=== PATIENT | female | born 1990 | race Caucasian/White ===

== ENCOUNTER 2016-08-24 08:06 | Emergency (ER) | payer MEDICAID ==
[~2016-08-24] VITALS: Ht 180.3 cm; Wt 63.4 kg
[~2016-08-24 08:06] MED LIST: DICL50TA3 PO
[2016-08-24 08:24] VITALS: BP 110/81; PULSE 117; RESP 16; TEMP 99.2
--- NOTE | 2016-08-24 08:58 | PD ---
HPI Chief Complaint: GI Complaint Time Seen by Provider: 08:42 Travel History International Travel<30 days: No Contact w/Intl Traveler<30days: No Traveled to known affect area: No History of Present Illness HPI The patient was seen and examined in the presence of the nurse. She complains of epigastric pain. Duration 3 days. Severity is moderate. She's had some nausea and vomiting and diarrhea as well as several other flu-type syndrome complaints such as runny nose congestion muscle aches. She reports that she had a bit of blood in in an episode of vomiting. No vy hemoptysis. No alleviating factors. PFSH Past Medical History Asthma: Yes Diminished Hearing: No Respiratory: Yes (asthma) Immunizations Current: Yes Tetanus Vaccination: < 5 Years Influenza Vaccination: No ?: Not LMP: 07/24/16 : 1 Para: 1 Past Surgical History Other Surgery: Yes (RIGHT ARM SURGERY A CHILD) Social History Alcohol Use: No Tobacco Use: No Substance Use: No Allergies-Medications (Allergen,Severity, Reaction): Coded Allergies: PEANUTS (Verified Allergy, Severe, Anaphylaxis, 08/24/16) Cultivated Oat Pollen (Verified Allergy, Intermediate, EYES WATERING, SNEEZING, 08/24/16) Reported Meds & Prescriptions Reported Meds & Active Scripts Active No Active Prescriptions or Reported Medications Review of Systems General / Constitutional: No: Fever Eyes: No: Visual changes HENT: Positive: Rhinorrhea, Congestion Cardiovascular: No: Chest Pain or Discomfort Respiratory: Positive: Cough Gastrointestinal: Positive: Nausea, Vomiting, Diarrhea, Abdominal Pain Genitourinary: No: Dysuria Musculoskeletal: Positive: Myalgias Skin: No Rash Neurologic: No: Weakness Psychiatric: No: Depression Endocrine: No: Polydipsia Hematologic/Lymphatic: No: Easy Bruising Physical Exam Narrative GENERAL: Well-nourished, well-developed patient with epigastric pain . SKIN: Warm and dry. HEAD: Atraumatic. Normocephalic. EYES: Pupils equal and round. No scleral icterus. No injection or drainage. ENT: No nasal bleeding or discharge. Mucous membranes pink and moist. NECK: Trachea midline. No JVD. CARDIOVASCULAR: Regular rate and rhythm. No murmur appreciated. RESPIRATORY: No accessory muscle use. Clear to auscultation. Breath sounds equal bilaterally. GASTROINTESTINAL: Abdomen soft, epigastrium is tender but no rebound guarding, nondistended. Hepatic and splenic margins not palpable. MUSCULOSKELETAL: No obvious deformities. No clubbing. No cyanosis. No edema. NEUROLOGICAL: Awake and alert. No obvious cranial nerve deficits. Motor grossly within normal limits. Normal speech. PSYCHIATRIC: Appropriate mood and affect; insight and judgment normal. Data Data Last Documented VS Vital Signs Date Time Temp Pulse Resp B/P Pulse Ox O2 Delivery O2 Flow Rate FiO2 08/24/16 08:50 18 08/24/16 08:24 99.2 117 110/81 Orders Complete Blood Count With Diff (08/24/16 08:51) Comprehensive Metabolic Panel (08/24/16 08:51) Lipase (08/24/16 08:51) Iv Access Insert/Monitor (08/24/16 08:51) NPO (08/24/16 08:51) Sodium Chloride 0.9% Flush (Ns Flush) (08/24/16 09:00) Bhcg Screen Qualitative (08/24/16 09:00) Labs Laboratory Tests Test 08/24/16 09:00 White Blood Count 3.6 TH/MM3 Red Blood Count 4.78 MIL/MM3 Hemoglobin 13.8 GM/DL Hematocrit 41.4 % Mean Corpuscular Volume 86.5 FL Mean Corpuscular Hemoglobin 28.8 PG Mean Corpuscular Hemoglobin 33.3 % Concent Red Cell Distribution Width 13.1 % Platelet Count 191 TH/MM3 Mean Platelet Volume 10.3 FL Neutrophils (%) (Auto) % Lymphocytes (%) (Auto) % Monocytes (%) (Auto) % Eosinophils (%) (Auto) % Basophils (%) (Auto) % Neutrophils # (Auto) TH/MM3 Lymphocytes # (Auto) TH/MM3 Monocytes # (Auto) TH/MM3 Eosinophils # (Auto) TH/MM3 Basophils # (Auto) TH/MM3 CBC Comment AUTO DIFF Sodium Level 140 MEQ/L Potassium Level 3.3 MEQ/L Chloride Level 105 MEQ/L Carbon Dioxide Level 26.6 MEQ/L Anion Gap 8 MEQ/L Blood Urea Nitrogen 14 MG/DL Creatinine 0.94 MG/DL Estimat Glomerular Filtration 73 ML/MIN Rate Random Glucose 87 MG/DL Calcium Level 8.9 MG/DL Total Bilirubin 0.3 MG/DL Aspartate Amino Transf 19 U/L (AST/SGOT) Alanine Aminotransferase 20 U/L (ALT/SGPT) Alkaline Phosphatase 48 U/L Total Protein 7.3 GM/DL Albumin 3.6 GM/DL Lipase 145 U/L Beta HCG, Qualitative LESS THAN 1 MIU/ML MDM Medical Decision Making Medical Screen Exam Complete: Yes Emergency Medical Condition: Yes Medical Record Reviewed: Yes Differential Diagnosis Differential diagnosis includes pancreatitis, biliary colic, hepatitis, GERD, peptic ulcer disease. Narrative Course I have reviewed the patient's electronic medical record. IV placed CBC shows normal hemoglobin Metabolic profile is normal LFTs are normal Lipase is normal Beta hCG is negative Patient is stable for outpatient follow-up. She has a viral flu syndrome which should resolve. I suggested some [id number] acid jared medication and recommending primary care follow-up I don't feel CT imaging is indicated Diagnosis Primary Impression: Epigastric abdominal pain of unknown etiology Additional Impression: Flu syndrome Additional Instructions: The patient was advised to follow up with their physician and return if they worsen. Med/Other Pt SpecificInfo: Other Scripts No Active Prescriptions or Reported Meds Disposition: 01 DISCHARGE HOME Condition: Stable Luis Laws MD Aug 24, 2016 08:57
[2016-08-24] MEDS ORDERED: SODIUM CHLORIDE 0.9% FLUSH 5 ML FLUSH IVF PRN (09:00)
[2016-08-24 09:11] LABS: CHLORIDE 105 MEQ/L (98-107); POTASSIUM 3.3 MEQ/L (3.5-5.1); SODIUM (NA) 140 MEQ/L (136-145)
[2016-08-24 09:15] LABS: ANION GAP 8 MEQ/L (5-15); BICARBONATE 26.6 MEQ/L (21.0-32.0); BLOOD UREA NITROGEN 14 MG/DL (7-18)
[2016-08-24 09:16] LABS: HEMATOCRIT 41.4 % (35.0-46.0); HEMO FLAGS AUTO DIFF; MEAN CELL VOLUME 86.5 FL (80.0-100.0); MEAN CORPUSCULAR HEMOGLOBIN 28.8 PG (27.0-34.0); MEAN CORPUSCULAR HGB CONC 33.3 % (32.0-36.0); PLATELET COUNT 191 TH/MM3 (150-450); RED BLOOD COUNT 4.78 MIL/MM3 (4.00-5.30); RED CELL DISTRIBUTION WIDTH 13.1 % (11.6-17.2); WHITE BLOOD COUNT 3.6 TH/MM3 (4.0-11.0)
[2016-08-24 09:18] LABS: ALT (GPT) 20 U/L (10-53); AST (GOT) 19 U/L (15-37); GLOMERULAR FILTRATION RATE 73 ML/MIN (>89)
[2016-08-24 09:19] LABS: TOTAL BILIRUBIN ADULT 0.3 MG/DL (0.2-1.0)
[2016-08-24 09:20] LABS: ALKALINE PHOSPHATASE 48 U/L (45-117)
[2016-08-24 09:58] LABS: BHCG SCREEN QUALITATIVE LESS THAN 1 MIU/ML (0-5)
[2016-08-24 10:42] LABS: BANDS 8 % (0-6); NEUTROPHIL # MANUAL DIFF 2.4 TH/MM3 (1.8-7.7); PLATELET ESTIMATE SMEAR NORMAL (NORMAL); PLATELET MORPHOLOGY NORMAL (NORMAL); POLYS (SEG NEUTROPHILS) 60 % (16-70); SCAN/DIFF FINAL DIFF MANUAL; WBC DIFF SAMPLE 100
[2016-08-24 10:45] VITALS: BP 107/70; PULSE 76; RESP 14; O2SAT 96
== END 2016-08-24 10:50 | disposition home or self-care (01) ==
LOC: PHED 08:06
DX: R10.13 Epigastric pain (principal); J11.1 Influenza due to unidentified influenza virus with other respiratory manifestations; R11.2 Nausea with vomiting, unspecified; R19.7 Diarrhea, unspecified; R09.81 Nasal congestion; M79.1 Myalgia; K92.0 Hematemesis; Z87.09 Personal history of other diseases of the respiratory system
CPT/HCPCS: 80053; 83690; 84703; 85007; 85027; 99284

== ENCOUNTER 2016-11-14 18:35 | Emergency (ER) | payer MEDICAID ==
[~2016-11-14] VITALS: Ht 180.3 cm; Wt 60.0 kg
[2016-11-14 18:37] VITALS: BP 129/79; PULSE 79; RESP 20; TEMP 98.7; O2SAT 100
[2016-11-14] MEDS ORDERED: ALBU1.25 NEB (18:50)
[2016-11-14] MEDS ORDERED: VENTAER INH (18:50)
--- NOTE | 2016-11-14 18:59 | PD ---
HPI Chief Complaint: Numbness/Tingling Time Seen by Provider: 18:59 Travel History International Travel<30 days: No Contact w/Intl Traveler<30days: No Traveled to known affect area: No History of Present Illness HPI 26-year-old female presents to the ED for evaluation of numbness and tingling of the right side of the body accompanied by chest pressure. Onset at noon today while in the store with her mother. She first experienced numbness and tingling of the entire right leg followed shortly by the right arm and right side of the face. She states that the chest pressure began shortly after. She denies palpitations, diaphoresis. She endorses mild nausea. She denies headache, dizziness, vision changes, loss of strength or range of motion of the extremities. Mom is at bedside and denies facial droop or slurred speech. Patient states that she's been eating and drinking normally throughout the day. She endorses "normal" urination and bowel movements. She takes no daily medications. She denies chronic health problems. She has never had an episode like this before. No treatment attempted at home. PFSH Past Medical History Asthma: Yes Diminished Hearing: No Respiratory: Yes (asthma) Immunizations Current: Yes Tetanus Vaccination: < 5 Years ?: Not LMP: 11/06/16 : 1 Para: 1 Past Surgical History Other Surgery: Yes (RIGHT ARM SURGERY A CHILD) Social History Alcohol Use: No Tobacco Use: No Substance Use: No Allergies-Medications (Allergen,Severity, Reaction): Coded Allergies: PEANUTS (Verified Allergy, Severe, Anaphylaxis, 11/14/16) Cultivated Oat Pollen (Verified Allergy, Intermediate, EYES WATERING, SNEEZING, 11/14/16) Reported Meds & Prescriptions Reported Meds & Active Scripts Active Reported Ventolin Hfa 18 GM Inh (Albuterol Sulfate) 90 Mcg/Act Aer 2 Puff INH Q4-6H PRN Albuterol Neb (Albuterol Sulfate) Unknown Strength Neb Unknown Dose NEB Q6HR NEB PRN Review of Systems Except as stated in HPI: all other systems reviewed are Neg Physical Exam Narrative GENERAL: Well-nourished, well-developed white female in no acute distress. SKIN: Focused skin assessment warm/dry. HEAD: Normocephalic. EYES: No scleral icterus. No injection or drainage. PERRLA. EOMI. NECK: Supple, trachea midline. No JVD or lymphadenopathy. CARDIOVASCULAR: Regular rate and rhythm without murmurs, gallops, or rubs. 2+ DP and radial pulses bilaterally. RESPIRATORY: Breath sounds are and equal bilaterally. No accessory muscle use. GASTROINTESTINAL: Abdomen soft, non-tender, nondistended. Active bowel sounds. MUSCULOSKELETAL: No cyanosis, or edema. Patient is noted to walk with normal gait. Sharp/dull sensation diminished from the right foot to the right knee. NEUROLOGICAL: Awake and alert. Cranial nerves II through XII intact. Motor and sensory grossly within normal limits. Five out of 5 muscle strength in all muscle groups. Normal speech. No pronator drift. BACK: Nontender without obvious deformity. No CVA tenderness. Data Data Last Documented VS Vital Signs Date Time Temp Pulse Resp B/P Pulse Ox O2 Delivery O2 Flow Rate FiO2 11/14/16 18:37 98.7 79 20 129/79 100 Room Air Orders Electrocardiogram (11/14/16 19:24) Ckmb (Isoenzyme) Profile (11/14/16 19:24) Complete Blood Count With Diff (11/14/16 19:24) Comprehensive Metabolic Panel (11/14/16 19:24) Magnesium (Mg) (11/14/16 19:24) Prothrombin Time / Inr (Pt) (11/14/16 19:24) Act Partial Throm Time (Ptt) (11/14/16 19:24) Troponin I (11/14/16 19:24) Chest, Single Ap (11/14/16 19:24) Ecg Monitoring (11/14/16 19:24) Bilateral Bp Monitoring (11/14/16 19:24) Iv Access Insert/Monitor (11/14/16 19:24) Oximetry (11/14/16 19:24) Sodium Chloride 0.9% Flush (Ns Flush) (11/14/16 19:30) Ed Urine Pregnancytest Poc (11/14/16 19:24) Sodium Chlor 0.9% 1000 Ml Inj (Ns 1000 M (11/14/16 19:45) Urinalysis - C+S If Indicated (11/14/16 20:53) Mri Brain W/O Contrast (11/14/16 ) Potassium Chloride (Kcl) (11/14/16 22:15) Labs Laboratory Tests Test 11/14/16 11/14/16 19:40 20:55 White Blood Count 8.0 TH/MM3 Red Blood Count 4.53 MIL/MM3 Hemoglobin 13.4 GM/DL Hematocrit 38.8 % Mean Corpuscular Volume 85.7 FL Mean Corpuscular Hemoglobin 29.6 PG Mean Corpuscular Hemoglobin 34.6 % Concent Red Cell Distribution Width 13.5 % Platelet Count 224 TH/MM3 Mean Platelet Volume 10.5 FL Neutrophils (%) (Auto) 64.9 % Lymphocytes (%) (Auto) 22.4 % Monocytes (%) (Auto) 10.9 % Eosinophils (%) (Auto) 1.3 % Basophils (%) (Auto) 0.5 % Neutrophils # (Auto) 5.2 TH/MM3 Lymphocytes # (Auto) 1.8 TH/MM3 Monocytes # (Auto) 0.9 TH/MM3 Eosinophils # (Auto) 0.1 TH/MM3 Basophils # (Auto) 0.0 TH/MM3 CBC Comment DIFF FINAL Differential Comment Prothrombin Time 10.9 SEC Prothromb Time International 1.0 RATIO Ratio Activated Partial 29.7 SEC Thromboplast Time Sodium Level 140 MEQ/L Potassium Level 3.4 MEQ/L Chloride Level 104 MEQ/L Carbon Dioxide Level 28.7 MEQ/L Anion Gap 7 MEQ/L Blood Urea Nitrogen 10 MG/DL Creatinine 0.89 MG/DL Estimat Glomerular Filtration 78 ML/MIN Rate Random Glucose 85 MG/DL Calcium Level 8.6 MG/DL Magnesium Level 2.4 MG/DL Total Bilirubin 0.3 MG/DL Aspartate Amino Transf 14 U/L (AST/SGOT) Alanine Aminotransferase 15 U/L (ALT/SGPT) Alkaline Phosphatase 65 U/L Total Creatine Kinase 90 U/L Troponin I LESS THAN 0.02 NG/ML Total Protein 7.1 GM/DL Albumin 3.7 GM/DL Urine Color YELLOW Urine Turbidity CLEAR Urine pH 7.0 Urine Specific [place] 1.014 Urine Protein NEG mg/dL Urine Glucose (UA) NEG mg/dL Urine Ketones NEG mg/dL Urine Occult Blood NEG Urine Nitrite NEG Urine Bilirubin NEG Urine Urobilinogen 2.0 MG/DL Urine Leukocyte Esterase NEG Urine WBC 1 /hpf Urine Squamous Epithelial <1 /hpf Cells Microscopic Urinalysis Comment CULT NOT INDICATED MDM Medical Decision Making Medical Screen Exam Complete: Yes Emergency Medical Condition: Yes Interpretation(s) EKG rate 70, sinus rhythm. NC interval 163, QRS 91, QTC 417. Normal axis. No ST depressions or elevations. Reviewed by Dr. Ho Differential Diagnosis ICH versus ACS versus dehydration versus electrolyte abnormality versus versus anxiety versus Guillain [place] versus other Narrative Course 26-year-old female presents to the ED for evaluation of numbness and tingling of the right side of the body accompanied by chest pressure. Onset at noon today while in the store with her mother. She first experienced numbness and tingling of the entire right leg followed shortly by the right arm and right side of the face. She states that the chest pressure began shortly after. She denies palpitations, diaphoresis. She endorses mild nausea. She denies headache, dizziness, vision changes, loss of strength or range of motion of the extremities. Mom is at bedside and denies facial droop or slurred speech. Patient states that she's been eating and drinking normally throughout the day. She endorses "normal" urination and bowel movements. She takes no daily medications. She denies chronic health problems. She has never had an episode like this before. Vitals reviewed. Physical exam , nontoxic-appearing white female in no acute distress. No focal neural deficits. Chest CTAB. Abdomen soft, nontender. No CVA tenderness. Patient retains full, active, painless ROM of the bilateral upper and lower extremities. Strength 5/5 bilaterally. Poor sharp versus dull discrimination from the right foot to the right knee. Patient was placed on continuous monitoring. IV was established. She was administered a liter of normal saline. CBC: Unremarkable Coags: INR 1.0. CMP: UA: Urine test: Negative Cardiac enzymes: Chest x-ray: Normal per radiology read. EKG: As above Head CT: Pending On recheck the patient is now complaining that her teeth and left hand feel numb. I discussed the case with Dr. Sheppard who suggests observational admission. CMP, UA, CT pending at this time. The patient will be signed out to Nicola Melendez PA-C. Please see his note for disposition. Patricia Lyon November 14, 2016 18:59
[2016-11-14] MEDS ORDERED: SODIUM CHLORIDE 0.9% FLUSH 10 ML FLUSH IVF PRN (19:30)
[2016-11-14] MEDS ORDERED: SODIUM CHLOR 0.9% 1000 ML INJ 1,000 ML IV ONE (19:45)
[2016-11-14 20:11] LABS: AUTOMATED NEUTROPHIL # 5.2 TH/MM3 (1.8-7.7); BASOPHIL % 0.5 % (0.0-2.0); EOSINOPHIL # 0.1 TH/MM3 (0-0.4); EOSINOPHIL % 1.3 % (0.0-4.0); HEMATOCRIT 38.8 % (35.0-46.0); HEMO FLAGS DIFF FINAL; LYMPH % 22.4 % (9.0-44.0); LYMPHOCYTE # 1.8 TH/MM3 (1.0-4.8); MEAN CELL VOLUME 85.7 FL (80.0-100.0); MEAN CORPUSCULAR HEMOGLOBIN 29.6 PG (27.0-34.0); MEAN CORPUSCULAR HGB CONC 34.6 % (32.0-36.0); MONO % 10.9 % (0.0-8.0); NEUT % 64.9 % (16.0-70.0); PLATELET COUNT 224 TH/MM3 (150-450); RED BLOOD COUNT 4.53 MIL/MM3 (4.00-5.30); RED CELL DISTRIBUTION WIDTH 13.5 % (11.6-17.2)
[2016-11-14 20:28] LABS: ANION GAP 7 MEQ/L (5-15); AST (GOT) 14 U/L (15-37); BICARBONATE 28.7 MEQ/L (21.0-32.0); BLOOD UREA NITROGEN 10 MG/DL (7-18); CHLORIDE 104 MEQ/L (98-107); GLOMERULAR FILTRATION RATE 78 ML/MIN (>89); MAGNESIUM 2.4 MG/DL (1.5-2.5); POTASSIUM 3.4 MEQ/L (3.5-5.1); SODIUM (NA) 140 MEQ/L (136-145)
--- NOTE | 2016-11-14 20:28 | RADRPT ---
EXAM DATE/TIME: 11/14/2016 19:56 [facility] COMPARISON: No previous studies available for comparison. INDICATIONS : Chest pain MEDICAL HISTORY : None. SURGICAL HISTORY : None. ENCOUNTER: Initial ACUITY: 1 day PAIN SCORE: 5/10 LOCATION: Bilateral chest FINDINGS: A single view of the chest demonstrates the lungs to be symmetrically aerated without evidence of mas s, infiltrate or effusion. The cardiomediastinal contours are unremarkable. Osseous structures are intact. CONCLUSION: Normal examination. Ricardo Ennis MD on November 14, 2016 at 20:26 Board Certified Radiologist. This report was verified electronically.
[2016-11-14 20:31] LABS: APTT (PATIENT) 29.7 SEC (24.3-30.1); PROTHROMBIN TIME - PATIENT 10.9 SEC (9.8-11.6)
[2016-11-14 20:34] LABS: ALKALINE PHOSPHATASE 65 U/L (45-117); ALT (GPT) 15 U/L (10-53); TOTAL BILIRUBIN ADULT 0.3 MG/DL (0.2-1.0)
[2016-11-14 20:57] LABS: CREATINE KINASE 90 U/L (26-192)
[2016-11-14 21:12] LABS: BLOOD, URINE NEG (NEG); GLUCOSE,URINE NEG (NEG); KETONE, URINE NEG (NEG); NITRITE,URINE NEG (NEG); SQUAMOUS EPITHELIAL CELL URINE <1 /hpf (0-5); URINE COLOR YELLOW (YELLW/STRAW)
[2016-11-14 21:17] LABS: COMMENT (UR) CULT NOT INDICATED; CULTURE IF INDICATED CULT NOT INDICATED
--- NOTE | 2016-11-14 21:30 | PD ---
Physical Exam Time Seen by Provider: 21:15 Data Data Last Documented VS Vital Signs Date Time Temp Pulse Resp B/P Pulse Ox O2 Delivery O2 Flow Rate FiO2 11/14/16 18:37 98.7 79 20 129/79 100 Room Air Orders Electrocardiogram (11/14/16 19:24) Ckmb (Isoenzyme) Profile (11/14/16 19:24) Complete Blood Count With Diff (11/14/16 19:24) Comprehensive Metabolic Panel (11/14/16 19:24) Magnesium (Mg) (11/14/16 19:24) Prothrombin Time / Inr (Pt) (11/14/16 19:24) Act Partial Throm Time (Ptt) (11/14/16 19:24) Troponin I (11/14/16 19:24) Chest, Single Ap (11/14/16 19:24) Ecg Monitoring (11/14/16 19:24) Bilateral Bp Monitoring (11/14/16 19:24) Iv Access Insert/Monitor (11/14/16 19:24) Oximetry (11/14/16 19:24) Sodium Chloride 0.9% Flush (Ns Flush) (11/14/16 19:30) Ed Urine Pregnancytest Poc (11/14/16 19:24) Sodium Chlor 0.9% 1000 Ml Inj (Ns 1000 M (11/14/16 19:45) Urinalysis - C+S If Indicated (11/14/16 20:53) Mri Brain W/O Contrast (11/14/16 ) Potassium Chloride (Kcl) (11/14/16 22:15) Labs Laboratory Tests Test 11/14/16 11/14/16 19:40 20:55 White Blood Count 8.0 TH/MM3 Red Blood Count 4.53 MIL/MM3 Hemoglobin 13.4 GM/DL Hematocrit 38.8 % Mean Corpuscular Volume 85.7 FL Mean Corpuscular Hemoglobin 29.6 PG Mean Corpuscular Hemoglobin 34.6 % Concent Red Cell Distribution Width 13.5 % Platelet Count 224 TH/MM3 Mean Platelet Volume 10.5 FL Neutrophils (%) (Auto) 64.9 % Lymphocytes (%) (Auto) 22.4 % Monocytes (%) (Auto) 10.9 % Eosinophils (%) (Auto) 1.3 % Basophils (%) (Auto) 0.5 % Neutrophils # (Auto) 5.2 TH/MM3 Lymphocytes # (Auto) 1.8 TH/MM3 Monocytes # (Auto) 0.9 TH/MM3 Eosinophils # (Auto) 0.1 TH/MM3 Basophils # (Auto) 0.0 TH/MM3 CBC Comment DIFF FINAL Differential Comment Prothrombin Time 10.9 SEC Prothromb Time International 1.0 RATIO Ratio Activated Partial 29.7 SEC Thromboplast Time Sodium Level 140 MEQ/L Potassium Level 3.4 MEQ/L Chloride Level 104 MEQ/L Carbon Dioxide Level 28.7 MEQ/L Anion Gap 7 MEQ/L Blood Urea Nitrogen 10 MG/DL Creatinine 0.89 MG/DL Estimat Glomerular Filtration 78 ML/MIN Rate Random Glucose 85 MG/DL Calcium Level 8.6 MG/DL Magnesium Level 2.4 MG/DL Total Bilirubin 0.3 MG/DL Aspartate Amino Transf 14 U/L (AST/SGOT) Alanine Aminotransferase 15 U/L (ALT/SGPT) Alkaline Phosphatase 65 U/L Total Creatine Kinase 90 U/L Troponin I LESS THAN 0.02 NG/ML Total Protein 7.1 GM/DL Albumin 3.7 GM/DL Urine Color YELLOW Urine Turbidity CLEAR Urine pH 7.0 Urine Specific [place] 1.014 Urine Protein NEG mg/dL Urine Glucose (UA) NEG mg/dL Urine Ketones NEG mg/dL Urine Occult Blood NEG Urine Nitrite NEG Urine Bilirubin NEG Urine Urobilinogen 2.0 MG/DL Urine Leukocyte Esterase NEG Urine WBC 1 /hpf Urine Squamous Epithelial <1 /hpf Cells Microscopic Urinalysis Comment CULT NOT INDICATED MDM Medical Record Reviewed: Yes Supervised Visit with MYA: No Narrative Course This patient was signed out pending some lab work and imaging studies. Please see previous providers note. Briefly this is a 26-year-old female who presents with several hours of right-sided body paresthesias. She endorses numbness in the right side of her face, right arm, right leg. Over the past several days she has been dispensing some paresthesias in the left hand as well. She denies any weakness in the arms or legs. She does endorse a substernal pressure for several hours as well. On examination she has 55 muscle strength in the upper and lower extremities, cranial nerves II through XII are grossly intact. She endorses some paresthesias with light and sharp touch on the right side of her face, right arm and right leg. She has 1+ Achilles and patellar reflexes bilaterally. Negative Babinski. This is an otherwise healthy 26-year-old female. Her lab work reveals slight hypokalemia with a 3.4 potassium level which would not explain her symptoms. Plan will be for MRI without contrast to assess for any mass lesions, evidence of multiple sclerosis. If negative likely discharge and outpatient follow-up with neurology. The MRI of the brain was negative. The patient will be given information in regards to applying for patient assistance for outpatient follow-up. She is agreeable to this plan. Diagnosis Primary Impression: Paresthesias Referrals: Neurologist Primary Care Physician Additional Instruction: As discussed, follow-up with a primary care physician, neurologist. Apply for patient assistance. Return for any acutely new or worsening symptoms. Med/Other Pt SpecificInfo: No Change to Meds Disposition: 01 DISCHARGE HOME Condition: Stable Nicola Melendez November 14, 2016 21:30
--- NOTE | 2016-11-14 21:34 | EKG ---
Date Performed: 11/14/2016 Time Performed: 19:34:42 PTAGE: 26 years EKG: Sinus rhythm WITH SINUS ARRHYTHMIA NORMAL ECG NO PREVIOUS TRACING DOCTOR: Toyin Ashby Interpretating Date/Time 11/14/2016 21:32:50
--- NOTE | 2016-11-14 22:13 | RADRPT ---
EXAM DATE/TIME: 11/14/2016 21:39 [facility] COMPARISON: No previous studies available for comparison. INDICATIONS : Right upper and lower extremity numbness. MEDICAL HISTORY : None. SURGICAL HISTORY : None. ENCOUNTER: Initial ACUITY: 1 day PAIN SCORE: 0/10 LOCATION: cranial TECHNIQUE: Multiplanar, multisequence MRI of the brain was performed without contrast. FINDINGS: CEREBRUM: The ventricles are normal for age. No evidence of midline shift, mass lesion, hemorrhage or acute in farction. No extraaxial fluid collections are seen. The pituitary gland and suprasellar cistern are normal in configuration. WHITE MATTER: No significant signal abnormalities are seen in the white matter. POSTERIOR FOSSA: The cerebellum and brainstem are intact. The 4th ventricle is midline. The cerebellopontine angle is unremarkable. The cerebellar tonsils are normal in position. DIFFUSION IMAGING: No focal areas of restricted diffusion are seen. No evidence of acute infarction. EXTRACRANIAL: The visualized portions of the orbits and paranasal sinuses are unremarkable. CONCLUSION: Normal examination for a patient of this age. Ricardo Ennis MD on November 14, 2016 at 22:07 Board Certified Radiologist. This report was verified electronically.
[2016-11-14] MEDS ORDERED: POTASSIUM CHLORIDE 20 MEQ CONTROLLED RELEASE TAB PO ONE (22:15)
--- NOTE | 2016-11-14 22:24 | PD ---
Data Data Last Documented VS Vital Signs Date Time Temp Pulse Resp B/P Pulse Ox O2 Delivery O2 Flow Rate FiO2 11/14/16 18:37 98.7 79 20 129/79 100 Room Air Orders Electrocardiogram (11/14/16 19:24) Ckmb (Isoenzyme) Profile (11/14/16 19:24) Complete Blood Count With Diff (11/14/16 19:24) Comprehensive Metabolic Panel (11/14/16 19:24) Magnesium (Mg) (11/14/16 19:24) Prothrombin Time / Inr (Pt) (11/14/16 19:24) Act Partial Throm Time (Ptt) (11/14/16 19:24) Troponin I (11/14/16 19:24) Chest, Single Ap (11/14/16 19:24) Ecg Monitoring (11/14/16 19:24) Bilateral Bp Monitoring (11/14/16 19:24) Iv Access Insert/Monitor (11/14/16 19:24) Oximetry (11/14/16 19:24) Sodium Chloride 0.9% Flush (Ns Flush) (11/14/16 19:30) Ed Urine Pregnancytest Poc (11/14/16 19:24) Sodium Chlor 0.9% 1000 Ml Inj (Ns 1000 M (11/14/16 19:45) Urinalysis - C+S If Indicated (11/14/16 20:53) Mri Brain W/O Contrast (11/14/16 ) Potassium Chloride (Kcl) (11/14/16 22:15) Labs Laboratory Tests Test 11/14/16 11/14/16 19:40 20:55 White Blood Count 8.0 TH/MM3 Red Blood Count 4.53 MIL/MM3 Hemoglobin 13.4 GM/DL Hematocrit 38.8 % Mean Corpuscular Volume 85.7 FL Mean Corpuscular Hemoglobin 29.6 PG Mean Corpuscular Hemoglobin 34.6 % Concent Red Cell Distribution Width 13.5 % Platelet Count 224 TH/MM3 Mean Platelet Volume 10.5 FL Neutrophils (%) (Auto) 64.9 % Lymphocytes (%) (Auto) 22.4 % Monocytes (%) (Auto) 10.9 % Eosinophils (%) (Auto) 1.3 % Basophils (%) (Auto) 0.5 % Neutrophils # (Auto) 5.2 TH/MM3 Lymphocytes # (Auto) 1.8 TH/MM3 Monocytes # (Auto) 0.9 TH/MM3 Eosinophils # (Auto) 0.1 TH/MM3 Basophils # (Auto) 0.0 TH/MM3 CBC Comment DIFF FINAL Differential Comment Prothrombin Time 10.9 SEC Prothromb Time International 1.0 RATIO Ratio Activated Partial 29.7 SEC Thromboplast Time Sodium Level 140 MEQ/L Potassium Level 3.4 MEQ/L Chloride Level 104 MEQ/L Carbon Dioxide Level 28.7 MEQ/L Anion Gap 7 MEQ/L Blood Urea Nitrogen 10 MG/DL Creatinine 0.89 MG/DL Estimat Glomerular Filtration 78 ML/MIN Rate Random Glucose 85 MG/DL Calcium Level 8.6 MG/DL Magnesium Level 2.4 MG/DL Total Bilirubin 0.3 MG/DL Aspartate Amino Transf 14 U/L (AST/SGOT) Alanine Aminotransferase 15 U/L (ALT/SGPT) Alkaline Phosphatase 65 U/L Total Creatine Kinase 90 U/L Troponin I LESS THAN 0.02 NG/ML Total Protein 7.1 GM/DL Albumin 3.7 GM/DL Urine Color YELLOW Urine Turbidity CLEAR Urine pH 7.0 Urine Specific [place] 1.014 Urine Protein NEG mg/dL Urine Glucose (UA) NEG mg/dL Urine Ketones NEG mg/dL Urine Occult Blood NEG Urine Nitrite NEG Urine Bilirubin NEG Urine Urobilinogen 2.0 MG/DL Urine Leukocyte Esterase NEG Urine WBC 1 /hpf Urine Squamous Epithelial <1 /hpf Cells Microscopic Urinalysis Comment CULT NOT INDICATED MDM Supervised Visit with MYA: Yes Narrative Course The history, exam, and medical decision-making in the associated mid-level provider note were completed with my assistance. I reviewed and agree with the findings presented. I attest that I had a [id number] encounter with the patient on the same day, and personally performed and documented my assessment and findings in the medical record. *My assessment and Findings: 26 old woman presents to the emergency department complaining of numbness tingling of the right side of her body including right arm right leg and right face. Since being here is also quite is some tingling in her teeth, and some tingling in her left side. She also had some chest pressure. No motor symptoms. MRI of the brain was performed without evidence of mass, hemorrhage, infarction, or white matter disease. Electrolytes are overall unremarkable. Numbness in tingling is likely nonorganic. With further evaluation if she develops any new or worsening symptoms. Stable for outpatient follow-up. Diagnosis Primary Impression: Paresthesias Referrals: Neurologist Primary Care Physician Disposition: 01 DISCHARGE HOME Condition: Stable Titi Alba MD November 14, 2016 22:24
== END 2016-11-14 22:29 | disposition home or self-care (01) ==
LOC: NEPD 18:35
DX: R20.2 Paresthesia of skin (principal); R07.89 Other chest pain; I49.8 Other specified cardiac arrhythmias
CPT/HCPCS: 70551; 71010; 80053; 81001; 82550; 83735; 84484; 84703; 85025; 85610; 85730; 93005; 96360; 99285; J7030

== ENCOUNTER 2016-11-16 20:51 | Observation (INO) | payer MEDICAID ==
[~2016-11-16] VITALS: Ht 180.3 cm; Wt 62.9 kg
[~2016-11-16 20:51] MED LIST changes: +ALBU1.25 NEB; -DICL50TA3 PO; +VENTAER INH
[2016-11-16 20:58] VITALS: BP 121/83; PULSE 83; RESP 18; TEMP 98.2; O2SAT 99
[2016-11-16 21:25] VITALS: BP 105/79; PULSE 72; RESP 18; O2SAT 99
--- NOTE | 2016-11-16 21:49 | PD ---
HPI Chief Complaint: Numbness/Tingling Time Seen by Provider: 21:35 Travel History International Travel<30 days: No Contact w/Intl Traveler<30days: No Traveled to known affect area: No History of Present Illness HPI This 26-year-old female presents because she noted some numbness in her left leg. She went to the [facility] 2 days ago because she developed numbness on the right side of her body. It involves her face or arm and her leg. The trunk is not affected. She had an MRI done of the brain which was read as negative. She says she's felt a little bit unsteady. She feels like her right arm and leg might be slightly weaker than the left. Today she started to notice some numbness in her left leg. She is not having fever or chills. She is not having headache. She does not take any medication. Regnancy test done 2 days ago was negative. PFSH Past Medical History Asthma: Yes Diminished Hearing: No Respiratory: Yes (ASTHMA) Immunizations Current: Yes Tetanus Vaccination: < 5 Years Influenza Vaccination: No ?: Not LMP: 1 WEEK : 1 Para: 1 Past Surgical History Other Surgery: Yes (RIGHT ARM SURGERY A CHILD) Social History Alcohol Use: No Tobacco Use: No Substance Use: No Allergies-Medications (Allergen,Severity, Reaction): Coded Allergies: PEANUTS (Verified Allergy, Severe, Anaphylaxis, 11/16/16) Cultivated Oat Pollen (Verified Allergy, Intermediate, EYES WATERING, SNEEZING, 11/16/16) Reported Meds & Prescriptions Reported Meds & Active Scripts Active Reported Ventolin Hfa 18 GM Inh (Albuterol Sulfate) 90 Mcg/Act Aer 2 Puff INH Q4-6H PRN Albuterol Neb (Albuterol Sulfate) Unknown Strength Neb Unknown Dose NEB Q6HR NEB PRN Review of Systems General / Constitutional: No: Fever, Chills Eyes: No: Diploplia, Blurred Vision HENT: No: Headaches, Vertigo, Lightheadedness Cardiovascular: No: Chest Pain or Discomfort, Palpitations Respiratory: No: Cough, Shortness of Breath Gastrointestinal: No: Vomiting, Diarrhea Genitourinary: No: Urgency, Frequency Musculoskeletal: No: Myalgias, Arthralgias Skin: No Rash Neurologic: Positive: Weakness, Sensory Disturbance Endocrine: No: Heat Intolerance, Cold Intolerance Hematologic/Lymphatic: No: Lymph Node Enlargement Physical Exam Narrative GENERAL: Well-developed female SKIN: Focused skin assessment warm/dry. HEAD: Atraumatic. Normocephalic. EYES: Pupils equal and round. No scleral icterus. No injection or drainage. ENT: No nasal bleeding or discharge. Mucous membranes pink and moist. NECK: Trachea midline. No JVD. CARDIOVASCULAR: Regular rate and rhythm. No murmur appreciated. RESPIRATORY: No accessory muscle use. Clear to auscultation. Breath sounds equal bilaterally. GASTROINTESTINAL: Abdomen soft, non-tender, nondistended. Hepatic and splenic margins not palpable. MUSCULOSKELETAL: No obvious deformities. No clubbing. No cyanosis. No edema. NEUROLOGICAL: Awake and alert. No obvious cranial nerve deficits. The right leg is slightly weaker than the left. Her speech is normal. She does have a sensory deficit of the right arm and face and leg. It involves light touch and proprioception The trunk does not appear to be affected. PSYCHIATRIC: Appropriate mood and affect; insight and judgment normal. Data Data Last Documented VS Vital Signs Date Time Temp Pulse Resp B/P Pulse Ox O2 Delivery O2 Flow Rate FiO2 11/16/16 21:25 72 18 105/79 99 Room Air 11/16/16 20:58 98.2 Orders Complete Blood Count With Diff (11/16/16 22:02) Basic Metabolic Panel (Bmp) (11/16/16 22:02) Westergren Sedimentation Rate (11/16/16 22:02) Labs Laboratory Tests Test 11/16/16 22:10 White Blood Count 7.1 TH/MM3 Red Blood Count 4.44 MIL/MM3 Hemoglobin 13.1 GM/DL Hematocrit 38.5 % Mean Corpuscular Volume 86.6 FL Mean Corpuscular Hemoglobin 29.5 PG Mean Corpuscular Hemoglobin 34.1 % Concent Red Cell Distribution Width 12.6 % Platelet Count 202 TH/MM3 Mean Platelet Volume 9.7 FL Neutrophils (%) (Auto) 60.4 % Lymphocytes (%) (Auto) 28.5 % Monocytes (%) (Auto) 8.9 % Eosinophils (%) (Auto) 1.2 % Basophils (%) (Auto) 1.0 % Neutrophils # (Auto) 4.3 TH/MM3 Lymphocytes # (Auto) 2.0 TH/MM3 Monocytes # (Auto) 0.6 TH/MM3 Eosinophils # (Auto) 0.1 TH/MM3 Basophils # (Auto) 0.1 TH/MM3 CBC Comment DIFF FINAL Differential Comment Erythrocyte Sedimentation Rate 3 mm/hr Sodium Level 141 MEQ/L Potassium Level 3.2 MEQ/L Chloride Level 103 MEQ/L Carbon Dioxide Level 30.8 MEQ/L Anion Gap 7 MEQ/L Blood Urea Nitrogen 14 MG/DL Creatinine 0.89 MG/DL Estimat Glomerular Filtration 78 ML/MIN Rate Random Glucose 111 MG/DL Calcium Level 8.9 MG/DL [facility] Medical Decision Making Medical Screen Exam Complete: Yes Emergency Medical Condition: Yes Medical Record Reviewed: Yes Differential Diagnosis Differential includes MS, conversion reaction, CVA Narrative Course Have discussed the case with Dr. Lee. He advises that MS may be missed with an MRI without contrast. She will be admitted for further evaluation. Patient does feel that her deficits have progressed over the past 2 days Diagnosis Primary Impression: Hemisensory deficit Naveed Hayward MD November 16, 2016 21:49
[2016-11-16 22:20] LABS: AUTOMATED NEUTROPHIL # 4.3 TH/MM3 (1.8-7.7); BASOPHIL # 0.1 TH/MM3 (0-0.2); EOSINOPHIL # 0.1 TH/MM3 (0-0.4); EOSINOPHIL % 1.2 % (0.0-4.0); HEMATOCRIT 38.5 % (35.0-46.0); HEMO FLAGS DIFF FINAL; LYMPH % 28.5 % (9.0-44.0); MEAN CELL VOLUME 86.6 FL (80.0-100.0); MEAN CORPUSCULAR HEMOGLOBIN 29.5 PG (27.0-34.0); MEAN CORPUSCULAR HGB CONC 34.1 % (32.0-36.0); MONO % 8.9 % (0.0-8.0); NEUT % 60.4 % (16.0-70.0); PLATELET COUNT 202 TH/MM3 (150-450); RED BLOOD COUNT 4.44 MIL/MM3 (4.00-5.30); RED CELL DISTRIBUTION WIDTH 12.6 % (11.6-17.2); WHITE BLOOD COUNT 7.1 TH/MM3 (4.0-11.0)
[2016-11-16 22:34] LABS: POTASSIUM 3.2 MEQ/L (3.5-5.1)
[2016-11-16 22:37] LABS: BICARBONATE 30.8 MEQ/L (21.0-32.0)
[2016-11-16 22:47] VITALS: BP 89/49; PULSE 74; RESP 16; O2SAT 95
[2016-11-16] MEDS ORDERED: POTASSIUM CHLORIDE 20 MEQ CONTROLLED RELEASE TAB PO ONE (23:00)
[2016-11-16] MEDS ORDERED: NALOXONE HCL 0.4 MG/ML AMP IV PRN (23:15)
[2016-11-16] MEDS ORDERED: ONDANSETRON HCL 4 MG/2 ML VIAL IVP PRN (23:15)
[2016-11-16] MEDS ORDERED: ACETAMINOPHEN 325 MG TAB PO PRN (23:15)
[2016-11-16] MEDS ORDERED: SODIUM CHLORIDE 0.9% FLUSH 10 ML FLUSH IV FLUSH PRN (23:15)
[2016-11-17] VITALS (7 sets, daily range): BP systolic 87–106; BP diastolic 52–84; PULSE 63–73; RESP 16–20; TEMP 96.8–98.3; O2SAT 98–100
[2016-11-17 05:49] LABS: POTASSIUM 3.6 MEQ/L (3.5-5.1)
[2016-11-17 05:55] LABS: BICARBONATE 28.8 MEQ/L (21.0-32.0)
[2016-11-17 06:03] LABS: AUTOMATED NEUTROPHIL # 3.7 TH/MM3 (1.8-7.7); BASOPHIL # 0.1 TH/MM3 (0-0.2); BASOPHIL % 0.9 % (0.0-2.0); EOSINOPHIL # 0.1 TH/MM3 (0-0.4); EOSINOPHIL % 1.3 % (0.0-4.0); HEMATOCRIT 42.3 % (35.0-46.0); HEMO FLAGS DIFF FINAL; LYMPH % 29.9 % (9.0-44.0); LYMPHOCYTE # 1.9 TH/MM3 (1.0-4.8); MEAN CELL VOLUME 87.9 FL (80.0-100.0); MEAN CORPUSCULAR HEMOGLOBIN 29.3 PG (27.0-34.0); MEAN CORPUSCULAR HGB CONC 33.4 % (32.0-36.0); MONO % 8.5 % (0.0-8.0); NEUT % 59.4 % (16.0-70.0); PLATELET COUNT 224 TH/MM3 (150-450); RED BLOOD COUNT 4.81 MIL/MM3 (4.00-5.30); RED CELL DISTRIBUTION WIDTH 13.2 % (11.6-17.2); WHITE BLOOD COUNT 6.3 TH/MM3 (4.0-11.0)
[2016-11-17] MEDS ORDERED: RESP: ALBUTEROL 0.63 MG/3 ML NEB (PRN) NEB (09:00)
[2016-11-17] MEDS: SODIUM CHLORIDE 0.9% FLUSH 10 ML FLUSH IV FLUSH SCH ×2 (09:00→22:52)
--- NOTE | 2016-11-17 09:30 | PD.CONS ---
History of Present Illness Service Neurology Consult Requested By med Reason for Consult numbness Primary Care Physician No Primary Care Physician History of Present Illness 26-year-old female presents because she noted some numbness in her left leg. She went to the main hospital 2 days ago because she developed numbness on the right side of her body. rt leg, arm , then rt face. persistent over the past 3 days. mri brain 11/14 negative for any acute lesion. she denies any stress, abuse, trauma. denies any depression/anxiety. has been able to eat and ambulate. no vision loss, no gait changes. no rash. no sick contacts. She is not having fever or chills. She is not having headache. She does not take any medication. PFSH Past Medical History Asthma: Yes Diminished Hearing: No Respiratory: Yes (ASTHMA) Immunizations Current: Yes Tetanus Vaccination: < 5 Years Influenza Vaccination: No ?: Not LMP: 1 WEEK : 1 Para: 1 Past Surgical History Other Surgery: Yes (RIGHT ARM SURGERY A CHILD) Social History Alcohol Use: No Tobacco Use: No Substance Use: No works at [employer] Allergies-Medications (Allergen,Severity, Reaction): Coded Allergies: PEANUTS (Verified Allergy, Severe, Anaphylaxis, 11/16/16) Cultivated Oat Pollen (Verified Allergy, Intermediate, EYES WATERING, SNEEZING, 11/16/16) Reported Meds & Prescriptions Reported Meds & Active Scripts Active Reported Ventolin Hfa 18 GM Inh (Albuterol Sulfate) 90 Mcg/Act Aer 2 Puff INH Q4-6H PRN Albuterol Neb (Albuterol Sulfate) Unknown Strength Neb Unknown Dose NEB Q6HR NEB PRN Review of Systems General / Constitutional: No: Fever, Chills Review of Systems All other ROS: ROS reviewed as documented in chart Past Family Social History Allergies: Coded Allergies: PEANUTS (Verified Allergy, Severe, Anaphylaxis, 11/16/16) Cultivated Oat Pollen (Verified Allergy, Intermediate, EYES WATERING, SNEEZING, 11/16/16) Active Ordered Medications Current Medications Medications (Trade) Dose Ordered Sig/Marcial Route Start Time Stop Time Status Last Admin (NS Flush) 2 ml UNSCH PRN IV FLUSH 11/16/16 23:15 (NS Flush) 2 ml BID IV FLUSH 11/17/16 09:00 (Tylenol) 650 mg Q4H PRN PO 11/16/16 23:15 (Zofran Inj) 4 mg Q6H PRN IVP 11/16/16 23:15 (Narcan Inj) 0.4 mg UNSCH PRN IV 11/16/16 23:15 Exam I&O / VS 11/16/16 11/16/16 11/17/16 15:00 23:00 07:00 Intake Total 200 ml Balance 200 ml Intake Oral 200 ml # Voids 1 # Bowel Movements 0 Vital Signs Date Time Temp Pulse Resp B/P Pulse Ox O2 Delivery O2 Flow Rate FiO2 11/17/16 00:00 96.8 69 16 104/70 98 11/16/16 22:47 74 16 89/49 95 Room Air 11/16/16 21:25 72 18 105/79 99 Room Air 11/16/16 21:10 72 99 Room Air 11/16/16 20:58 98.2 83 18 121/83 99 General: Alert and Oriented, No acute distress Eye: EOMI Respiratory: Non-labored respirations Cardiology: Normal rate Musculoskeletal: ROM Neurologic: Alert, Oriented, Normal motor, Normal DTR's Psychiatric: Cooperative Exam Comments ox 3, calm, monotone, follows, no aphasia, eomi, vff, ou 3-2mm, face sym, reyes to gravity, no drift able to raise all 4 limbs >10 secs, no distal weakness 5/5 , reduced pin on rt side face/arm/leg; no agraphesia, msr 2+, no clonus, planter flexor Review/Management Diagnosis/Plan: (1) Hemisensory deficit Plan: likely conversion not peripheral 2/2 hemisensory distribution repeat mri b/c to exclude any developing lesion, infarct or demyelinating recs mri brain/mri cspine with contrast if negative, may need to consult psych p.t. d/w Miles Ambrocio MD November 17, 2016 09:30
--- NOTE | 2016-11-17 12:08 | HHI.HP ---
[facility] No Primary Care Physician Admission Diagnosis HEMISENSORY DEFICIT Diagnoses: Chief Complaint: Tingling sensation of the left hand and leg Travel History International Travel<30 Days: No Contact w/Intl Traveler <30 Da: No Traveled to Known Affected Are: No History of Present Illness This is a 26-year-old female with a history of asthma. She returns to the emergency department because of tingling sensation affecting her left hand and left leg. She was at the main hospital 3 days ago because she developed numbness on the right side of her body. It started on her leg and radiated cephalad affecting her right face and right upper extremity sparing the trunk. She had an MRI done of the brain which was read as negative. She says she's felt a little bit unsteady. Yesterday she started to notice some numbness in her left hand and leg. She is not having fever or chills, headache, nausea, visual change, speech and swallowing difficulties. She does not take any medication. Regnancy test done 2 days ago was negative. She reports of mild soreness and her neck and lower back. Neurology recommended contrast MRI of the brain and C-spine. If unremarkable consult psychiatry for possible conversion disorder. When discussed with the patient plan of care, she became emotional and teary eyed stating she is afraid. Denies depression or recent stressors. She is gainfully employed. She is a single parent supporting a 2- year-old son Review of Systems Except as stated in HPI: all other systems reviewed are Neg Past Family Social History Past Medical History As previously mentioned. LMP over a week ago. Past Surgical History Denies Reported Medications Albuterol Allergies: Coded Allergies: PEANUTS (Verified Allergy, Severe, Anaphylaxis, 11/16/16) Cultivated Oat Pollen (Verified Allergy, Intermediate, EYES WATERING, SNEEZING, 11/16/16) Family History Diabetes mellitus Social History She does not smoke or drink Physical Exam Vital Signs Vital Signs Date Time Temp Pulse Resp B/P Pulse Ox O2 Delivery O2 Flow Rate FiO2 11/17/16 08:00 97.1 68 20 103/70 100 11/17/16 00:00 96.8 69 16 104/70 98 11/16/16 22:47 74 16 89/49 95 Room Air 11/16/16 21:25 72 18 105/79 99 Room Air 11/16/16 21:10 72 99 Room Air 11/16/16 20:58 98.2 83 18 121/83 99 Physical Exam GENERAL: This is a well-nourished, well-developed patient, in no apparent distress. SKIN: No rashes, ecchymoses or lesions. Cool and dry. HEAD: Atraumatic. Normocephalic. No temporal or scalp tenderness. EYES: Pupils equal round and reactive. Extraocular motions intact. No scleral icterus. No injection or drainage. ENT: Nose without bleeding, purulent drainage or septal hematoma. Throat without erythema, tonsillar hypertrophy or exudate. Uvula midline. Airway patent. NECK: Trachea midline. No JVD or lymphadenopathy. Supple, nontender, no meningeal signs. CARDIOVASCULAR: Regular rate and rhythm without murmurs, gallops, or rubs. RESPIRATORY: Clear to auscultation. Breath sounds equal bilaterally. No wheezes , rales, or rhonchi. GASTROINTESTINAL: Abdomen soft, non-tender, nondistended. No hepato-splenomegaly , or palpable masses. No guarding. MUSCULOSKELETAL: Extremities without clubbing, cyanosis, or edema. No joint tenderness, effusion, or edema noted. No calf tenderness. Negative Homans sign bilaterally. NEUROLOGICAL: Awake and alert. Cranial nerves II through XII intact. Motor grossly within normal limits. Decreased sensation right face, right upper and right lower extremities Five out of 5 muscle strength in all muscle groups. Normal speech. Laboratory Laboratory Tests Test 11/16/16 11/17/16 22:10 04:49 White Blood Count 7.1 6.3 Red Blood Count 4.44 4.81 Hemoglobin 13.1 14.1 Hematocrit 38.5 42.3 Mean Corpuscular Volume 86.6 87.9 Mean Corpuscular Hemoglobin 29.5 29.3 Mean Corpuscular Hemoglobin 34.1 33.4 Concent Red Cell Distribution Width 12.6 13.2 Platelet Count 202 224 Mean Platelet Volume 9.7 10.3 Neutrophils (%) (Auto) 60.4 59.4 Lymphocytes (%) (Auto) 28.5 29.9 Monocytes (%) (Auto) 8.9 8.5 Eosinophils (%) (Auto) 1.2 1.3 Basophils (%) (Auto) 1.0 0.9 Neutrophils # (Auto) 4.3 3.7 Lymphocytes # (Auto) 2.0 1.9 Monocytes # (Auto) 0.6 0.5 Eosinophils # (Auto) 0.1 0.1 Basophils # (Auto) 0.1 0.1 CBC Comment DIFF FINAL DIFF FINAL Differential Comment Erythrocyte Sedimentation Rate 3 Sodium Level 141 142 Potassium Level 3.2 3.6 Chloride Level 103 104 Carbon Dioxide Level 30.8 28.8 Anion Gap 7 9 Blood Urea Nitrogen 14 12 Creatinine 0.89 0.79 Estimat Glomerular Filtration 78 89 Rate Random Glucose 111 95 Calcium Level 8.9 8.7 Thyroid Stimulating Hormone 0.813 3rd Gen Result Diagram: 11/17/169 11/17/16448 Imaging Imaging studies during previous visit reviewed. Chest x-ray image interpreted by me with no acute cardio pulmonary disease Assessment and Plan Problem List: (1) Hemisensory deficit ICD Code: R29.818 Status: Acute (2) Paresthesias ICD Code: R20.2 Status: Acute Assessment and Plan This is a 26-year-old female who returns to the emergency department because of tingling sensation affecting her left hand and left leg. She was at the main hospital 3 days ago because she developed numbness on the right side of her body. It started on her leg and radiated cephalad affecting her right face and right upper extremity sparing the trunk. She had an MRI done of the brain which was read as negative. She says she's felt a little bit unsteady. Yesterday she started to notice some numbness in her left hand and leg. She is not having fever or chills, headache, nausea, visual change, speech and swallowing difficulties. She does not take any medication. Regnancy test done 2 days ago was negative. She reports of mild soreness and her neck and lower back. Hemisensory deficits. Possible conversion disorder versus MS. Neurology recommended contrast MRI of the brain and C-spine. Physical therapy. If unremarkable consult psychiatry for possible conversion disorder. Denies depression or recent stressors. She is gainfully employed. She is a single parent supporting a 2-year-old son Asthma. Stable nebulization as needed Low risk for DVT Discussed Condition With Patient and nursing staff Edd Briones MD November 17, 2016 12:08
[2016-11-17 13:02] LABS: BARBITURATES, URINE NEG (NEG)
[2016-11-17 13:03] LABS: AMPHETAMINE, URINE NEG (NEG); COCAINE, URINE NEG (NEG)
[2016-11-17] MEDS ORDERED: GADODIAMIDE PF 287 MG/ML 5 ML VIAL (for RAD MRI) IV ONE (14:15)
--- NOTE | 2016-11-17 16:14 | RADHPO ---
EXAM DATE/TIME: 11/17/2016 14:34 [facility] COMPARISON: No previous studies available for comparison. INDICATIONS : Mulitple sclerosis. Right sided weakness. CONTRAST: 12 cc Omniscan (gadodiamide) IV MEDICAL HISTORY : Asthma. SURGICAL HISTORY : None. ENCOUNTER: Subsequent ACUITY: 4-6 days PAIN SCORE: 0/10 LOCATION: neck. TECHNIQUE: Multiplanar, multisequence MRI examination of the cervical spine was performed. FINDINGS: Alignment: Craniocervical and cervical vertebral alignment are normal. Osseous structures and facet joints: Osseous structures are unremarkable. Vertebral body height is well-maintained. There is no bone marro w edema. Posterior elements are unremarkable. There is no facet arthropathy. Intervertebral disc spaces: Normal Neurologic structures: The spinal cord is normal in caliber and signal intensity. There are no T2 hyperintense abnormalities . There are no enhancing epidural, intradural or intramedullary lesions. CONCLUSION: Normal examination. The No evidence of demyelinating process, inflammatory disease, enhancing lesions or mass. Ulysses Dick MD on November 17, 2016 at 16:10 Board Certified Radiologist. This report was verified electronically.
--- NOTE | 2016-11-17 16:23 | RADHPO ---
EXAM DATE/TIME: 11/17/2016 14:34 [facility] COMPARISON: MRI BRAIN W & W/O CONTRAST, November 17, 2016, 14:34. INDICATIONS : Right sided weakness. Multiple sclerosis. MEDICAL HISTORY : Asthma. SURGICAL HISTORY : None. ENCOUNTER: Subsequent ACUITY: 4-6 days PAIN SCORE: 0/10 LOCATION: head. Please note a normal MRA of the brain does not entirely exclude the possibility of a small aneurysm, nor the possibility of distal intracranial vessel disease. TECHNIQUE: 3D time of flight MRA was performed. Source images, multiplanar STS MIP, and 3D volume MIP reconstru ctions were reviewed. FINDINGS: There is excellent visualization of the major intracranial arteries out to the second-order branch ve ssels. Symmetric linear hypointensity is identified in the carotid siphons. The cerebral vessels are unremar kable. There are no focal endovascular abnormalities identified on MRI of the brain. There is no evidence for aneurysm, vessel truncation or stenosis, and no evidence for vascular malfor mation. CONCLUSION: Endoluminal linear hypointensity in the carotid siphons which have the appearance of flow artifact. C TA of the brain should be considered if the patient has any risk factors for possible intimal dissect ion. Ulysses Dick MD on November 17, 2016 at 16:12 Board Certified Radiologist. This report was verified electronically.
--- NOTE | 2016-11-17 16:46 | RADHPO ---
EXAM DATE/TIME: 11/17/2016 14:34 [facility] COMPARISON: No previous studies available for comparison. INDICATIONS : Right sided weakness. Multiple sclerosis. CONTRAST: 12 cc Omniscan (gadodiamide) IV MEDICAL HISTORY : Asthma. SURGICAL HISTORY : None. ENCOUNTER: Subsequent ACUITY: 4-6 days PAIN SCORE: 0/10 LOCATION: head. TECHNIQUE: Multiplanar, multisequence MRI of the brain was performed both prior to and following the administrat ion of paramagnetic contrast. FINDINGS: CEREBRUM: The ventricles are normal for age. No evidence of midline shift, mass lesion, hemorrhage or acute in farction. No extraaxial fluid collections are seen. The pituitary gland and suprasellar cistern are normal in configuration. WHITE MATTER: No significant signal abnormalities are seen in the white matter. POSTERIOR FOSSA: The cerebellum and brainstem are intact. The 4th ventricle is midline. The cerebellopontine angle is unremarkable. The cerebellar tonsils are normal in position. DIFFUSION IMAGING: No focal areas of restricted diffusion are seen. No evidence of acute infarction. EXTRACRANIAL: The visualized portions of the orbits and paranasal sinuses are unremarkable. POST-CONTRAST: No abnormal areas of parenchymal or dural enhancement. No evidence of blood-brain barrier breakdown. CONCLUSION: Normal examination. No evidence of demyelinating disease, inflammatory changes, enhancing lesions or mass. Ulysses Dick MD on November 17, 2016 at 16:42 Board Certified Radiologist. This report was verified electronically.
[2016-11-18] VITALS: BP 110/69; PULSE 71; RESP 16; TEMP 97.4; O2SAT 99
[2016-11-18] MEDS ORDERED: SODIUM CHLOR 0.9% 1000 ML INJ 1,000 ML IV SCH (08:15)
[2016-11-18 08:56] VITALS: BP 106/73; PULSE 73; RESP 14; TEMP 97.4; O2SAT 99
[2016-11-18] MEDS: SODIUM CHLORIDE 0.9% FLUSH 10 ML FLUSH IV FLUSH SCH ×2 (09:35→21:00)
[2016-11-18] MEDS: SODIUM CHLOR 0.9% 1000 ML INJ 1,000 ML IV SCH ×2 (09:35→21:15)
[2016-11-18] MEDS ORDERED: IOHEXOL 350 MG/ML 10 ML VIAL (for RAD DIAG) IV ONE (09:47)
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
--- NOTE | 2016-11-18 11:09 | RADHPO ---
EXAM DATE/TIME: 11/18/2016 09:17 [facility] COMPARISON: No previous studies available for comparison. INDICATIONS : Right sided numbness, facial,upper and lower extremeties IV CONTRAST: 99 cc Omnipaque 350 (iohexol) IV ; Cumulative dose for multiple exams. RADIATION DOSE: 42.85 CTDIvol (mGy) ; Combined studies MEDICAL HISTORY : Asthma SURGICAL HISTORY : None. ENCOUNTER: Initial ACUITY: 4 - 6 days PAIN SCALE: 0/10 LOCATION: Right neck Elevated flow velocities and ICA/CCA ratios have been found to correlate with increased degrees of vessel stenosis, calculated as percentage of diameter relative to a normal segment of distal ICA/CCA. TECHNIQUE: Volumetric scanning was performed using a multirow detector CT scanner. The data was post processed with a variety of visualization algorithms including full-volume maximum intensity projection, multip lanar sliding thin-slab reformation, curved-planar reformation, and surface-rendering techniques. Us ing automated exposure control and adjustment of the mA and/or kV according to patient size, radiatio n dose was kept as low as reasonably achievable to obtain optimal diagnostic quality images. FINDINGS: AORTIC ARCH: There is a three-vessel origin of the great vessels from the aorta. No evidence of ostial narrowing. RIGHT CAROTID: The common carotid artery is intact. The carotid bulb has a normal configuration without ulceration o r narrowing. The internal carotid artery lumen is smooth without stenosis. The external carotid imelda ry is intact. LEFT CAROTID: The common carotid artery is intact. The carotid bulb has a normal configuration without ulceration or narrowing. The internal carotid artery lumen is smooth without stenosis. The external carotid ar baljinder is intact. VERTEBRALS: The vertebral arteries have a symmetric diameter. No stenotic lesions are seen. CONCLUSION: Negative CTA of the carotids. Elbert Regalado MD FACR on November 18, 2016 at 11:06 Board Certified Radiologist. This report was verified electronically.
--- NOTE | 2016-11-18 11:20 | RADHPO ---
EXAM DATE/TIME: 11/18/2016 09:17 [facility] COMPARISON: No previous studies available for comparison. INDICATIONS : Right sided numbness, facial,upper and lower extremeties IV CONTRAST: 99 cc Omnipaque 350 (iohexol) IV ; Cumulative dose for multiple exams. RADIATION DOSE: 42.85 CTDIvol (mGy) ; Combined studies MEDICAL HISTORY : Asthma SURGICAL HISTORY : None. ENCOUNTER: Initial ACUITY: 4 - 6 days PAIN SCALE: 5/10 LOCATION: Right cranial TECHNIQUE: Volumetric scanning was performed using a multi-row detector CT scanner. The data was post processed with a variety of visualization algorithms including full volume maximum intensity projection, multi -planar sliding thin slab reformation, curved planar reformation, and surface rendering techniques. Using automated exposure control and adjustment of the mA and/or kV according to patient size, radiat ion dose was kept as low as reasonably achievable to obtain optimal diagnostic quality images. FINDINGS: There is excellent visualization of the major intracranial arteries out to the second-order branch ve ssels. There is no evidence for aneurysm, vessel truncation or stenosis, and no evidence for vascula r malformation. CTA of the brain was performed to further evaluate the carotid syphons. There is reasonable visualization of the carotids through the skull base. I don't see evidence for a dissection. There is no evidence for a major branch vessel occlusion. CONCLUSION: 1. I do not see evidence for a carotid dissection. 2. There is no evidence for major branch vessel occlusion, aneurysm or vascular displacement. Elbert Regalado MD FACR on November 18, 2016 at 10:45 Board Certified Radiologist. This report was verified electronically.
[2016-11-18 11:57] VITALS: BP 98/64; PULSE 67; RESP 15; TEMP 97.7; O2SAT 100
[2016-11-18 17:04] VITALS: BP 119/71; PULSE 87; RESP 14; TEMP 96.5; O2SAT 99
[2016-11-18 20:00] VITALS: BP 109/71; PULSE 84; RESP 16; TEMP 97.8; O2SAT 97
[2016-11-19] VITALS: BP 109/68; PULSE 75; RESP 19; TEMP 97.5; O2SAT 98
[2016-11-19 04:00] VITALS: BP 93/61; PULSE 65; RESP 19; TEMP 97.9; O2SAT 99
[2016-11-19 08:00] VITALS: BP 107/71; PULSE 67; RESP 16; TEMP 98.6; O2SAT 100
[2016-11-19] MEDS: SODIUM CHLORIDE 0.9% FLUSH 10 ML FLUSH IV FLUSH SCH ×2 (08:42→21:08)
[2016-11-19 10:11] LABS: HDL CHOLESTEROL 37.7 MG/DL (40.0-60.0)
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
[2016-11-19 11:19] LABS: APTT (PATIENT) 31.4 SEC (24.3-30.1); PROTHROMBIN TIME - PATIENT 11.4 SEC (9.8-11.6)
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
[2016-11-19 11:54] VITALS: BP 112/76; PULSE 89; RESP 16; TEMP 98.2; O2SAT 100
--- NOTE | 2016-11-19 13:38 | MG ---
cc: CHAVEZ ARIAS M.D. Lab No: [id number] Date: 11/19/2016 Age: 26 Sex: F Race: DATE OF : [address] Tran. Room 8302 with the patient awake, drowsy, asleep with good effort to hyperventilation and photic stimulation. MRI reported to be normal. This is a 23-year-old female with numbness in the left leg, feeling unsteady as if her left side may be weaker for the last couple of days. A few days ago she was at [facility] for the same symptoms but on the right side. History of febrile seizures as a child and asthma. Current medicines are Tylenol. The patient has Alpha rhythm of 9 Hz, 20-60 microvolts, symmetrical background. Some minor movement artifact throughout. Photic stimulation elicits a posterior driving response. There is a possibility right before the 21 Hz photic of some sharp waves bilaterally at epoch 39 and do not appreciate any other ones during the photic phase. Hyperventilation has been performed without any epileptic discharges. Again, there may have been some sharp wave activity around epoch 71, again some sharps as well as some spike and slow waves seen bilaterally, not localized to one side. This is at hyperventilation 1 minute post and again at epoch 77 and 87. IMPRESSION Abnormal EEG due to some sharp waves as well as some spike and slow waves seen as described in the body of the paragraph, may be focus for epileptogenicity in this patient. Clinical correlation. Possible trial of antiepileptics to be considered. MD IRMA Valdez/JERED /1:15 PM /1:25 PM
[2016-11-19] MEDS: SODIUM CHLOR 0.9% 1000 ML INJ 1,000 ML IV SCH (14:42)
[2016-11-19 15:26] VITALS: BP 117/75; PULSE 80; RESP 16; TEMP 96.4; O2SAT 100
[2016-11-19 20:00] VITALS: BP 128/91; PULSE 82; RESP 16; TEMP 97.3; O2SAT 99
[2016-11-19] MEDS: levETIRAcetam 500 MG TAB PO SCH (21:08)
[2016-11-20] VITALS: BP 107/66; PULSE 88; RESP 16; TEMP 97.1; O2SAT 99
[2016-11-20] MEDS: SODIUM CHLOR 0.9% 1000 ML INJ 1,000 ML IV SCH (00:18)
[2016-11-20 08:00] VITALS: BP 109/74; PULSE 71; RESP 20; TEMP 96; O2SAT 100
[2016-11-20] MEDS: levETIRAcetam 500 MG TAB PO SCH (08:46)
[2016-11-20] MEDS: SODIUM CHLORIDE 0.9% FLUSH 10 ML FLUSH IV FLUSH SCH (08:49)
--- NOTE | 2016-11-20 09:53 | PD.RAD ---
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
[2016-11-20 10:05] VITALS: BP 107/70; PULSE 70; RESP 20; TEMP 98; O2SAT 100
[2016-11-20 10:29] LABS: GROSS BLOOD TUBE #1 0 (0); GROSS BLOOD TUBE #2 0 (0); GROSS BLOOD TUBE #3 0 (0); GROSS BLOOD TUBE #4 0 (0); SUPERNATE COLOR TUBE #1 CLEAR (CLEAR); SUPERNATE COLOR TUBE #2 CLEAR (CLEAR); SUPERNATE COLOR TUBE #3 CLEAR (CLEAR); SUPERNATE COLOR TUBE #4 CLEAR (CLEAR); VOLUME TUBE # 2 2.5 ML; VOLUME TUBE # 3 2.5 ML; VOLUME TUBE # 4 2.5 ML; WBC TUBE #4 0 /MM3 (0-10)
[2016-11-20 11:02] LABS: CSF LYMPHOCYTES 0 %; CSF NEUTROPHILS 0 %
--- NOTE | 2016-11-20 11:08 | RADHPO ---
EXAM DATE/TIME: 11/20/2016 09:27 [facility] COMPARISON: No previous studies available for comparison. INDICATIONS : Patient is in need of a lumbar puncture for evaluation of CSF due to continued intermittent bilateral extremity numbness. MEDICAL HISTORY : History of asthma, paresthesia. SURGICAL HISTORY : N/A ENCOUNTER: Initial ACUITY: 1 week PAIN SCORE: 0/10 LUMBAR PUNCTURE TIME: 0938 hours FLUORO TIME: 1.0 minutes IMAGE SERIES: 0 ACCESS LEVEL: L4-5 OPENING PRESSURE: 10 cm of water CLOSING PRESSURE: Not requested. FLUID: 11 cc of clear CSF was collected and sent to the laboratory for analysis. PROCEDURE : 1. Fluoroscopic guided lumbar puncture. 2. Recording of opening pressure. The risks, benefits and alternatives to the procedure were explained and verbal and written consent w as obtained. The site was prepped in sterile fashion. Full sterile technique was used, including ca p, mask, sterile gloves and gown and a large sterile sheet. Hand hygiene and 2% chlorhexidine and/or betadine/alcohol prep was utilized per protocol for cutaneous antisepsis. The skin and subcutaneous tissues were infiltrated with local anesthetic solution. With fluoroscopic guidance the lumbar thecal sac was punctured at the above level described above and the opening pressure was recorded. The above described fluid was removed without difficulty. The patient tolerated the procedure well and there were no complications. CONCLUSION: Uncomplicated fluoroscopically guided lumbar puncture with pressures as above. Ulysses Dick MD on November 20, 2016 at 11:05 Board Certified Radiologist. This report was verified electronically.
[2016-11-20] MEDS ORDERED: LEVE500 PO (11:09)
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
[2016-11-20 12:00] VITALS: BP 103/68; PULSE 77; RESP 20; TEMP 97.5; O2SAT 99
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
[2016-11-21 12:55] LABS: HSV 1,PCR Negative (Negative)
[2016-11-21 16:11] LABS: CMV PCR SPECIMEN SOURCE CSF (())
[2016-11-23 09:56] LABS: CSF CRYPTOCOCCUS AG CONF ND (NOT DETECTD)
[2016-11-25 13:53] LABS: VDRL CSF NON-REACTIVE (())
== END 2016-11-20 13:00 | disposition home or self-care (01) ==
LOC: PHEFT 20:51 → PHEDA 22:43 → PH3A 23:19 → UNDODISOB 11-19 19:00
PROVIDERS: ADMIT Hospitalist; ATTEND Hospitalist
DX: R20.2 Paresthesia of skin (principal); R20.0 Anesthesia of skin; R29.818 Other symptoms and signs involving the nervous system; R94.01 Abnormal electroencephalogram [EEG]; R41.4 Neurologic neglect syndrome; J45.909 Unspecified asthma, uncomplicated; Z91.010 Allergy to peanuts; Z91.018 Allergy to other foods; R79.1 Abnormal coagulation profile
CPT/HCPCS: 62270; 70496; 70498; 70544; 70553; 72156; 77003; 80048; 80061; 80307; 82945; 83873; 84157; 84443; 85025; 85610; 85652; 85730; 86403; 86592; 87015; 87070; 87102; 87116; 87205; 87206; 87497; 87529; 89051; 95819; 97110; 97116; 97162; 97166; 97535; 99284; A9579; G0378; G8987; G8988; J7030; Q9967

== ENCOUNTER 2017-03-31 18:33 | Emergency (ER) | payer OTHER ==
[~2017-03-31] VITALS: Ht 180.3 cm; Wt 60.0 kg
[~2017-03-31 18:33] MED LIST changes: +LEVE500 PO
[2017-03-31 18:35] VITALS: BP 133/82; PULSE 80; RESP 20; TEMP 98.7; O2SAT 100
--- NOTE | 2017-03-31 19:05 | PD ---
Physical Exam Date Seen by Provider: Mar 31, 2017 Time Seen by Provider: 19:01 Narrative 26-year-old female presents to emergency department with complaining of lower pelvic pain. She states that she had cramping with a menstrual cycle 2 weeks ago. She has stopped bleeding now for one week but still has persistent lower pelvic cramping. Moderate in nature. She states that she is concerned that she may be . She has similar symptoms of when she was in the past. She has breast tenderness, increased urinary frequency, nausea and lower pelvic cramping. She had a negative home test. She denies any fever or chills. No: vomiting, upper abdominal pain, vaginal discharge or abnormal fluid. Vital signs reviewed. Awaiting bed placement. Data Data Last Documented VS Vital Signs Date Time Temp Pulse Resp B/P (MAP) Pulse Ox O2 Delivery O2 Flow Rate FiO2 03/31/17 18:35 98.7 80 20 133/82 (99) 100 Room Air [facility] Medical Record Reviewed: No Supervised Visit with MYA: Ricardo Zhao Mar 31, 2017 19:05
[2017-03-31 19:37] LABS: BLOOD, URINE NEG (NEG); COMMENT (UR) CULT NOT INDICATED; CULTURE IF INDICATED CULT NOT INDICATED; GLUCOSE,URINE NEG (NEG); KETONE, URINE NEG (NEG); MUCUS URINE FEW /lpf (OCC); NITRITE,URINE NEG (NEG); PH, URINE 6.5 (5.0-8.5); SQUAMOUS EPITHELIAL CELL URINE 1 /hpf (0-5); URINE COLOR YELLOW (YELLW/STRAW)
[2017-03-31] MEDS ORDERED: SODIUM CHLOR 0.9% 1000 ML INJ 1,000 ML IV SCH (20:09)
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
[2017-03-31] MEDS ORDERED: SODIUM CHLORIDE 0.9% FLUSH 10 ML FLUSH IV FLUSH PRN (20:15)
[2017-03-31] MEDS ORDERED: KETOROLAC TROMETHAMINE 30 MG/ML (IVP) VIAL IVP ONE (20:15)
[2017-03-31 20:48] LABS: AUTOMATED NEUTROPHIL # 4.3 TH/MM3 (1.8-7.7); BASOPHIL % 0.5 % (0.0-2.0); EOSINOPHIL # 0.1 TH/MM3 (0-0.4); EOSINOPHIL % 1.6 % (0.0-4.0); HEMATOCRIT 39.8 % (35.0-46.0); HEMO FLAGS DIFF FINAL; LYMPH % 27.8 % (9.0-44.0); LYMPHOCYTE # 1.9 TH/MM3 (1.0-4.8); MEAN CELL VOLUME 86.7 FL (80.0-100.0); MEAN CORPUSCULAR HEMOGLOBIN 28.9 PG (27.0-34.0); MEAN CORPUSCULAR HGB CONC 33.3 % (32.0-36.0); MONO % 8.3 % (0.0-8.0); NEUT % 61.8 % (16.0-70.0); PLATELET COUNT 215 TH/MM3 (150-450); RED BLOOD COUNT 4.59 MIL/MM3 (4.00-5.30); RED CELL DISTRIBUTION WIDTH 13.1 % (11.6-17.2); WHITE BLOOD COUNT 6.9 TH/MM3 (4.0-11.0)
[2017-03-31 20:55] VITALS: O2SAT 100
[2017-03-31 20:56] VITALS: BP 120/78; PULSE 65; RESP 16; O2SAT 100
[2017-03-31 21:02] LABS: BICARBONATE 29.3 MEQ/L (21.0-32.0); POTASSIUM 3.8 MEQ/L (3.5-5.1)
--- NOTE | 2017-03-31 21:35 | RADRPT ---
EXAM DATE/TIME: 03/31/2017 20:49 [facility] COMPARISON: No previous studies available for comparison. INDICATIONS : Torsion. MEDICAL HISTORY : Ovarian cysts. Pelvic pain. Asthma. SURGICAL HISTORY : None. ENCOUNTER: Initial ACUITY: 1 day PAIN SCORE: 6/10 LOCATION: Bilateral pelvis MEASUREMENTS: UTERUS: 7.7 x 4.7 x 3.7 cm ENDOMETRIAL STRIPE: 4 mm RIGHT OVARY: 2.6 x 2.2 x 2.6 cm LEFT OVARY: 3.4 x 2.4 x 2.4 cm FINDINGS: UTERUS: The myometrium has homogeneous echotexture without mass. RIGHT OVARY: Ovary contains no mass or significant cystic lesion. Small dominant follicle measuring 11 mm is note d. LEFT OVARY: Ovary contains no mass or significant cystic lesion. MISCELLANEOUS: No free fluid. CONCLUSION: No evidence of ovarian torsion. The uterus and ovaries are unremarkable. No free flui d within the cul-de-sac. Michael Adair MD on March 31, 2017 at 21:32 Board Certified Radiologist. This report was verified electronically.
[2017-03-31] MEDS ORDERED: METR-1 PO (21:45)
[2017-03-31 23:04] LABS: CHLAMYDIA PCR NOT DETECTED (NOT DETECT); NEISSERIA PCR NOT DETECTED (NOT DETECT)
== END 2017-03-31 22:04 | disposition home or self-care (01) ==
LOC: NEPD 18:33
DX: N76.0 Acute vaginitis (principal)
CPT/HCPCS: 76856; 80048; 81001; 84703; 85025; 87210; 87491; 87591; 93975; 96374; 99285; J1885; J7030

== ENCOUNTER 2017-04-20 11:37 | Emergency (ER) | payer SELFPAY ==
[~2017-04-20] VITALS: Ht 180.3 cm; Wt 62.4 kg
[~2017-04-20 11:37] MED LIST changes: -LEVE500 PO; +METR-1 PO
[2017-04-20 11:41] VITALS: BP 116/68; PULSE 78; RESP 16; TEMP 99.2; O2SAT 98
[2017-04-20] MEDS ORDERED: SODIUM CHLOR 0.9% 1000 ML INJ 1,000 ML IV ONE (11:56)
[2017-04-20] MEDS ORDERED: SODIUM CHLORIDE 0.9% FLUSH 10 ML FLUSH IVF PRN (12:00)
[2017-04-20] MEDS ORDERED: MORPHINE SULFATE 2 MG/ML INJ IV PUSH ONE (12:00)
--- NOTE | 2017-04-20 12:06 | PD ---
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 Reports that she has noticed some vaginal discharge along with increased pruritus and irritations to her labia. Reports that she is sexually active and does use contraceptives. Patient denies history of STDs in the past. Patient does admit to having history of ovarian cysts. She does follow-up with Dr. Arroyo in the office. Patient also complains of dysuria, urinary urgency and frequency. Patient denies any fevers or chills, reports no chest pain or shortness of breath. Reports only moderate pain constant pain to the right lower pelvis. PFSH Past Medical History Asthma: Yes Blood Disorders: No Cancer: No Cardiovascular Problems: No COPD: No Diminished Hearing: No Endocrine: No Genitourinary: No Immune Disorder: No Musculoskeletal: No Neurologic: Yes (PT C/O NUMBNESS/TINGLING OF EXTS LAST 3 DAYS) Psychiatric: No Reproductive: Yes (OVARIAN CYSTS) Respiratory: Yes Immunizations Current: Yes Sleep Apnea: No ?: Unknown : 1 Para: 1 Past Surgical History Other Surgery: Yes (RIGHT ARM SURGERY A CHILD) Social History Alcohol Use: Yes (OCCASIONALLY) Tobacco Use: No Substance Use: No Allergies-Medications (Allergen,Severity, Reaction): Coded Allergies: peanut (Unverified Allergy, Severe, Anaphylaxis, 04/20/17) grass pollen (Unverified Allergy, Intermediate, EYES WATERING, SNEEZING, 04/20/17) Reported Meds & Prescriptions Reported Meds & Active Scripts Active Macrobid (Nitrofurantoin Monoh/Nitrofur Macro) 100 Mg Cap 100 Mg PO BID 7 Days Ibuprofen 600 Mg Tab 600 Mg PO Q6H PRN Diflucan (Fluconazole) 150 Mg Tab 150 Mg PO ONCE Reported Ventolin Hfa 18 GM Inh (Albuterol Sulfate) 90 Mcg/Act Aer 2 Puff INH Q4-6H PRN Albuterol Neb (Albuterol Sulfate) Unknown Strength Neb Unknown Dose NEB Q6HR NEB PRN Review of Systems General / Constitutional: No: Fever Eyes: No: Visual changes HENT: No: Headaches Cardiovascular: No: Chest Pain or Discomfort Respiratory: No: Shortness of Breath Gastrointestinal: Positive: Abdominal Pain Genitourinary: Positive: Urgency, Frequency, Dysuria, Pelvic Pain, Discharge, No: Hesitancy, Flank Pain, Vaginal Bleeding Musculoskeletal: No: Pain Skin: No Rash Neurologic: No: Weakness Psychiatric: No: Depression Endocrine: No: Polydipsia Hematologic/Lymphatic: No: Easy Bruising Physical Exam Narrative GENERAL: mild distress SKIN: Focused skin assessment warm/dry. HEAD: Atraumatic. Normocephalic. EYES: Pupils equal and round. No scleral icterus. No injection or drainage. ENT: No nasal bleeding or discharge. Mucous membranes pink and moist. NECK: Trachea midline. No JVD. CARDIOVASCULAR: Regular rate and rhythm. No murmur appreciated. RESPIRATORY: No accessory muscle use. Clear to auscultation. Breath sounds equal bilaterally. GASTROINTESTINAL: Abdomen soft, increased tenderness to right pelvis with no rebound or guarding, nondistended. Hepatic and splenic margins not palpable. : pelvic exam performed with RN at bedside, patient with irritated and swollen labia's with no ulcerations or pustules, patient with thick yellow to green vaginal discharge, right sided adnexal tenderness MUSCULOSKELETAL: No obvious deformities. No clubbing. No cyanosis. No edema. NEUROLOGICAL: Awake and alert. No obvious cranial nerve deficits. Motor grossly within normal limits. Normal speech. PSYCHIATRIC: Appropriate mood and affect; insight and judgment normal. Data Data Last Documented VS Vital Signs Date Time Temp Pulse Resp B/P (MAP) Pulse Ox O2 Delivery O2 Flow Rate FiO2 04/20/17 13:04 16 04/20/17 11:41 99.2 78 116/68 (84) 98 Orders Orders Urinalysis - C+S If Indicated (04/20/17 11:47) Ed Urine Pregnancytest Poc (04/20/17 11:47) Complete Blood Count With Diff (04/20/17 11:56) Comprehensive Metabolic Panel (04/20/17 11:56) Gc And Chlamydia Pcr (04/20/17 11:56) Wet Prep Profile (04/20/17 11:56) Iv Access Insert/Monitor (04/20/17 11:56) Sodium Chloride 0.9% Flush (Ns Flush) (04/20/17 12:00) Sodium Chlor 0.9% 1000 Ml Inj (Ns 1000 M (04/20/17 11:56) Us Pelvis Comp W Doppler (04/20/17 11:56) Morphine Inj (Morphine Inj) (04/20/17 12:00) Urine Culture (04/20/17 12:00) Ceftriaxone Inj (Rocephin Inj) (04/20/17 13:00) Labs Laboratory Tests Test 04/20/17 12:00 04/20/17 12:09 Urine Collection Type CLEAN CATCH Urine Color YELLOW Urine Turbidity CLEAR Urine pH 5.5 Urine Specific [place] 1.015 Urine Protein NEG mg/dL Urine Glucose (UA) NEG mg/dL Urine Ketones NEG mg/dL Urine Occult Blood TRACE Urine Nitrite NEG Urine Bilirubin NEG Urine Leukocyte Esterase MOD Urine RBC 4-9 /hpf Urine WBC 15-19 /hpf Urine Squamous Epithelial Cells 0-5 /hpf Urine Bacteria FEW /hpf Urine Yeast (Budding) OCC Microscopic Urinalysis Comment CULTURE INDICATED Urine Collection Time 12:00 Clue Cells (Wet Prep) NONE SEEN Vaginal Trichomonas (Wet Prep) NONE SEEN Vaginal Yeast (Wet Prep) PRESENT White Blood Count 12.4 TH/MM3 Red Blood Count 4.47 MIL/MM3 Hemoglobin 13.3 GM/DL Hematocrit 38.5 % Mean Corpuscular Volume 86.1 FL Mean Corpuscular Hemoglobin 29.9 PG Mean Corpuscular Hemoglobin Concent 34.7 % Red Cell Distribution Width 12.5 % Platelet Count 197 TH/MM3 Mean Platelet Volume 10.1 FL Neutrophils (%) (Auto) 85.5 % Lymphocytes (%) (Auto) 7.5 % Monocytes (%) (Auto) 6.1 % Eosinophils (%) (Auto) 0.2 % Basophils (%) (Auto) 0.7 % Neutrophils # (Auto) 10.6 TH/MM3 Lymphocytes # (Auto) 0.9 TH/MM3 Monocytes # (Auto) 0.8 TH/MM3 Eosinophils # (Auto) 0.0 TH/MM3 Basophils # (Auto) 0.1 TH/MM3 CBC Comment DIFF FINAL Differential Comment Blood Urea Nitrogen 10 MG/DL Creatinine 0.71 MG/DL Random Glucose 103 MG/DL Total Protein 7.3 GM/DL Albumin 3.8 GM/DL Calcium Level 8.5 MG/DL Alkaline Phosphatase 53 U/L Aspartate Amino Transf (AST/SGOT) 12 U/L Alanine Aminotransferase (ALT/SGPT) 16 U/L Total Bilirubin 0.3 MG/DL Sodium Level 137 MEQ/L Potassium Level 3.7 MEQ/L Chloride Level 104 MEQ/L Carbon Dioxide Level 26.6 MEQ/L Anion Gap 6 MEQ/L Estimat Glomerular Filtration Rate 101 ML/MIN [facility] Medical Decision Making Medical Screen Exam Complete: Yes Emergency Medical Condition: Yes Medical Record Reviewed: Yes Interpretation(s) Vital Signs Date Time Temp Pulse Resp B/P (MAP) Pulse Ox O2 Delivery O2 Flow Rate FiO2 04/20/17 11:41 99.2 78 16 116/68 (84) 98 Differential Diagnosis Differential includes cervicitis, Jaime vaginitis, UTI, ovarian cysts, appendicitis Narrative Course 26-year-old female who presents to emergency room with complaints of right- sided pelvic pain since yesterday. Patient reports that she has been having increased vaginal discharge with pleuritic and redness. On evaluation, patient does have vy thick yellow to greenish discharge with increased irritation and redness to her labia suggestive of a possible yeast infection versus STD. Patient has been cultured for possible gonorrhea and chlamydia. She does not wish to be treated for gonorrhea and chlamydia and will wait for cultures results. She does have right-sided adnexal tenderness. Pelvic ultrasound was ordered to evaluate for possible ovarian cyst as she does have history of ovarian cysts in the past, will also evaluate for possible ovarian torsion. An IV line was established, CBC, CMP, UA ordered. IV fluids as well as pain medications ordered. Vital Signs Date Time Temp Pulse Resp B/P (MAP) Pulse Ox O2 Delivery O2 Flow Rate FiO2 04/20/17 13:04 16 04/20/17 11:41 99.2 78 16 116/68 (84) 98 CBC & BMP Diagram 04/20/17 12:09 Total Protein 7.3, Albumin 3.8, Calcium Level 8.5, Alkaline Phosphatase 53, Aspartate Amino Transf (AST/SGOT) 12 L, Alanine Aminotransferase (ALT/SGPT) 16, Total Bilirubin 0.3 wbc 12.4, hgb 13.3, hct: 38.5, platelets: 197 sodium 137, chloride 104, potassium 3.7, bun 10, creatine 0.71 UA: positive for leuk esterase, 15-19 wbc, few bacteria, occ yeast - Patient was given a dose of IV rocephin - UC sent Pelvic exam: Positive for yeast, neg for clue cells and trick - Plan to discharge with script for diflucan G/C Pending - patient will follow up with cultures from today, she does not wish to be treated at this time Pelvic US pending Pelvic ultrasound with no acute findings, no ovarian cysts or signs of ovarian torsion. Patient was reevaluated, patient reports that she is feeling much better at this time. Plan to discharge patient to home with outpatient follow-up. Signs and symptoms of when to return to the emergency room was reviewed patient in detail. She will follow up with all cultures from today. Abdomen is soft, nontender, nondistended, no peritoneal signs at discharge Diagnosis Primary Impression: Abdominal pain Qualified Codes: R10.30 - Lower abdominal pain, unspecified Additional Impressions: Candidal vaginitis UTI (urinary tract infection) Qualified Codes: N30.01 - Acute cystitis with hematuria Patient Instructions: General Instructions Additional Instructions: Please follow up with all cultures from today Please take all medications as prescribed Return to ER if symptoms worsen or progress Return to ER as needed Please follow up with your outreach analyst as well as your primary care doctor Med/Other Pt SpecificInfo: Prescription(s) given Scripts Nitrofurantoin Monohydrate Macrocrystals (Macrobid) 100 Mg Cap 100 MG PO BID for Infection for 7 Days, #14 CAP 0 Refills Prov: Amy Clayton DO 04/20/17 Ibuprofen (Ibuprofen) 600 Mg Tab 600 MG PO Q6H Y for Pain/Inflammation, #40 TAB 0 Refills Prov: Amy Clayton DO 04/20/17 Fluconazole (Diflucan) 150 Mg Tab 150 MG PO ONCE for Infection, #2 TAB 0 Refills Prov: Amy Clayton DO 04/20/17 Disposition: 01 DISCHARGE HOME Condition: Stable Amy Clayton DO Apr 20, 2017 12:06
[2017-04-20 12:20] LABS: GLUCOSE,URINE NEG (NEG); KETONE, URINE NEG (NEG); NITRITE,URINE NEG (NEG); PH, URINE 5.5 (5.0-8.5)
[2017-04-20 12:23] LABS: BLOOD, URINE TRACE (NEG)
[2017-04-20 12:24] LABS: METHOD OF COLLECTION CLEAN CATCH; URINE COLOR YELLOW (YELLW/STRAW)
[2017-04-20 12:25] LABS: BACTERIA, URINE FEW /hpf; SQUAMOUS EPITHELIAL CELL URINE 0-5 /hpf (0-5); WBC, URINE 15-19 /hpf (0-5)
[2017-04-20 12:26] LABS: COMMENT (UR) CULTURE INDICATED; CULTURE IF INDICATED CULTURE INDICATED
[2017-04-20 12:27] LABS: CHLORIDE 104 MEQ/L (98-107); POTASSIUM 3.7 MEQ/L (3.5-5.1); SODIUM (NA) 137 MEQ/L (136-145)
[2017-04-20 12:31] LABS: ANION GAP 6 MEQ/L (5-15); BICARBONATE 26.6 MEQ/L (21.0-32.0); BLOOD UREA NITROGEN 10 MG/DL (7-18)
[2017-04-20 12:34] LABS: ALT (GPT) 16 U/L (10-53); AST (GOT) 12 U/L (15-37); GLOMERULAR FILTRATION RATE 101 ML/MIN (>89)
[2017-04-20 12:36] LABS: AUTOMATED NEUTROPHIL # 10.6 TH/MM3 (1.8-7.7); BASOPHIL # 0.1 TH/MM3 (0-0.2); BASOPHIL % 0.7 % (0.0-2.0); EOSINOPHIL % 0.2 % (0.0-4.0); HEMATOCRIT 38.5 % (35.0-46.0); HEMO FLAGS DIFF FINAL; LYMPH % 7.5 % (9.0-44.0); LYMPHOCYTE # 0.9 TH/MM3 (1.0-4.8); MEAN CELL VOLUME 86.1 FL (80.0-100.0); MEAN CORPUSCULAR HEMOGLOBIN 29.9 PG (27.0-34.0); MEAN CORPUSCULAR HGB CONC 34.7 % (32.0-36.0); MONO % 6.1 % (0.0-8.0); NEUT % 85.5 % (16.0-70.0); PLATELET COUNT 197 TH/MM3 (150-450); RED BLOOD COUNT 4.47 MIL/MM3 (4.00-5.30); RED CELL DISTRIBUTION WIDTH 12.5 % (11.6-17.2); TOTAL BILIRUBIN ADULT 0.3 MG/DL (0.2-1.0); WHITE BLOOD COUNT 12.4 TH/MM3 (4.0-11.0)
[2017-04-20 12:37] LABS: ALKALINE PHOSPHATASE 53 U/L (45-117)
[2017-04-20] MEDS ORDERED: cefTRIAXone INJ 1,000 MG in SODIUM CHLORIDE 0.9% INJ 100 ML IV ONE (13:00)
[2017-04-20 13:20] VITALS: BP 105/67; PULSE 70; RESP 16; O2SAT 99
[2017-04-20] MEDS ORDERED: MACR100C2 PO (13:23)
[2017-04-20] MEDS ORDERED: IBUP-232 PO (13:23)
[2017-04-20] MEDS ORDERED: DIFL150T PO (13:23)
--- NOTE | 2017-04-20 13:40 | RADRPT ---
EXAM DATE/TIME: 04/20/2017 12:40 [facility] COMPARISON: US PELVIS,COMP,W DOPPLER, March 31, 2017, 20:49. INDICATIONS : Pelvic pain. MEDICAL HISTORY : Pelvic pain. Ovarian cysts. SURGICAL HISTORY : Right arm surgery. ENCOUNTER: Subsequent ACUITY: 1 month PAIN SCORE: 6/10 LOCATION: Bilateral pelvis MEASUREMENTS: UTERUS: 9.7 x 4.7 x 5.7 cm ENDOMETRIAL STRIPE: 9 mm RIGHT OVARY: 2.5 x 1.9 x 1.9 cm LEFT OVARY: 4.3 x 2.2 x 2.1 cm FINDINGS: UTERUS: The myometrium has homogeneous echotexture without mass. RIGHT OVARY: Ovary contains no mass or significant cystic lesion. LEFT OVARY: Ovary contains no mass or significant cystic lesion. MISCELLANEOUS: No free fluid. CONCLUSION: Normal examination. No evidence of ovarian torsion, suspicious adnexal lesions or inflammatory changes. Ulysses Dick MD on April 20, 2017 at 13:37 Board Certified Radiologist. This report was verified electronically.
[2017-04-20 14:07] VITALS: BP 106/58
[2017-04-20 14:44] LABS: CHLAMYDIA PCR NOT DETECTED (NOT DETECT); NEISSERIA PCR NOT DETECTED (NOT DETECT)
== END 2017-04-20 14:11 | disposition home or self-care (01) ==
LOC: PHED 11:37
DX: B37.3 Candidiasis of vulva and vagina (principal); N30.01 Acute cystitis with hematuria; R10.2 Pelvic and perineal pain; J45.909 Unspecified asthma, uncomplicated
CPT/HCPCS: 76856; 80053; 81001; 84703; 85025; 87086; 87210; 87491; 87591; 93975; 96361; 96365; 96375; 99285; J0696; J2270; J7030

== ENCOUNTER 2017-07-04 12:33 | Emergency (ER) | payer MEDICAID ==
[~2017-07-04] VITALS: Ht 180.3 cm; Wt 60.0 kg
[~2017-07-04 12:33] MED LIST changes: +DIFL150T PO; +IBUP-232 PO; +MACR100C2 PO; -METR-1 PO
[2017-07-04 12:35] VITALS: BP 124/82; PULSE 87; RESP 16; TEMP 99.5; O2SAT 98
[2017-07-04] MEDS ORDERED: ONDANSETRON HCL 4 MG/2 ML VIAL IVP ONE (13:00)
[2017-07-04] MEDS ORDERED: KETOROLAC TROMETHAMINE 30 MG/ML (IVP) VIAL IVP ONE (13:00)
[2017-07-04] MEDS ORDERED: HYDROmorphone HCL PF 2 MG/ML VIAL IV ONE (13:00)
[2017-07-04] MEDS ORDERED: SODIUM CHLORIDE 0.9% FLUSH 10 ML FLUSH IVF PRN (13:00)
[2017-07-04] MEDS ORDERED: SODIUM CHLOR 0.9% 1000 ML INJ 1,000 ML IV ONE (13:00)
--- NOTE | 2017-07-04 13:40 | PD ---
HPI . Right flank pain Chief Complaint: Complaint Time Seen by Provider: 12:56 Travel History International Travel<30 days: No Contact w/Intl Traveler<30days: No Traveled to known affect area: No History of Present Illness HPI Patient presents with a chief complaint of right flank pain. Onset was one week ago. Pain is getting progressively worse. She rates the pain 8/10. Pain is exacerbated by movement. Unrelieved by Ibuprofen. She reports associated nausea but no vomiting or fever. She denies any urinary tract symptoms. She states that she has had similar symptoms before due to a urinary tract infection. She states that she had a urinary tract infection without signs or symptoms of a UTI. PFSH Past Medical History Asthma: Yes Blood Disorders: No Cancer: No Cardiovascular Problems: No COPD: No Diminished Hearing: No Endocrine: No Genitourinary: No Immune Disorder: No Musculoskeletal: No Neurologic: Yes (PT C/O NUMBNESS/TINGLING OF EXTS LAST 3 DAYS) Psychiatric: No Reproductive: Yes (OVARIAN CYSTS) Respiratory: Yes Immunizations Current: Yes Sleep Apnea: No ?: Unknown : 1 Para: 1 Past Surgical History Surgical History: No Previous Surgery Other Surgery: Yes (RIGHT ARM SURGERY A CHILD) Social History Alcohol Use: Yes (OCCASIONALLY) Tobacco Use: No Substance Use: No Allergies-Medications (Allergen,Severity, Reaction): Coded Allergies: peanut (Unverified Allergy, Severe, Anaphylaxis, 07/04/17) grass pollen (Unverified Allergy, Intermediate, EYES WATERING, SNEEZING, 07/04/17) Reported Meds & Prescriptions Reported Meds & Active Scripts Active Reported Ventolin Hfa 18 GM Inh (Albuterol Sulfate) 90 Mcg/Act Aer 2 Puff INH Q4-6H PRN Albuterol Neb (Albuterol Sulfate) Unknown Strength Neb Unknown Dose NEB Q6HR NEB PRN Review of Systems Except as stated in HPI: all other systems reviewed are Neg General / Constitutional: No: Fever, Chills Gastrointestinal: Positive: Nausea, No: Vomiting, Diarrhea Genitourinary: Positive: Flank Pain, No: Urgency, Frequency, Dysuria, Hematuria Physical Exam Narrative GENERAL: Awake and alert. She looks uncomfortable. SKIN: warm/dry. Good color. HEAD: Normocephalic. Atraumatic. EYES: Pupils equal and round. No scleral icterus. No injection or drainage. ENT: No nasal bleeding or discharge. Mucous membranes pink and moist. NECK: Trachea midline. Full range of motion without pain.. CARDIOVASCULAR: Regular rate and rhythm. RESPIRATORY: No accessory muscle use. Clear to auscultation. Breath sounds equal bilaterally. GASTROINTESTINAL: Abdomen soft. Mild right-sided tenderness. Bowel sounds present. Nondistended. : Positive right CVA tenderness. MUSCULOSKELETAL: No obvious deformities. NEUROLOGICAL: Awake and alert. No obvious cranial nerve deficits. Motor grossly within normal limits. Normal speech. PSYCHIATRIC: Appropriate mood and affect; insight and judgment normal. Data Data Last Documented VS Vital Signs Date Time Temp Pulse Resp B/P (MAP) Pulse Ox O2 Delivery O2 Flow Rate FiO2 07/04/17 12:35 99.5 87 16 124/82 (96) 98 Orders Orders Urinalysis - C+S If Indicated (07/04/17 12:48) Ed Urine Pregnancytest Poc (07/04/17 12:48) Basic Metabolic Panel (Bmp) (07/04/17 12:57) Complete Blood Count With Diff (07/04/17 12:57) Iv Access Insert/Monitor (07/04/17 12:57) Ketorolac Inj (Toradol Inj) (07/04/17 13:00) Ondansetron Inj (Zofran Inj) (07/04/17 13:00) Sodium Chloride 0.9% Flush (Ns Flush) (07/04/17 13:00) Hydromorphone Pf Inj (Dilaudid Pf Inj) (07/04/17 13:00) Sodium Chlor 0.9% 1000 Ml Inj (Ns 1000 M (07/04/17 13:00) Us Kidney/Renal/Bladder (07/04/17 13:34) Us Pelvis (Ques Pr/Ect)W Trans (07/04/17 13:34) Beta Hcg (Quant/Titer) (07/04/17 13:34) Urine Culture (07/04/17 13:20) Ceftriaxone Inj (Rocephin Inj) (07/04/17 14:00) Labs Laboratory Tests Test 07/04/17 13:20 White Blood Count 8.7 TH/MM3 Red Blood Count 4.75 MIL/MM3 Hemoglobin 14.5 GM/DL Hematocrit 41.5 % Mean Corpuscular Volume 87.4 FL Mean Corpuscular Hemoglobin 30.4 PG Mean Corpuscular Hemoglobin Concent 34.8 % Red Cell Distribution Width 13.1 % Platelet Count 199 TH/MM3 Mean Platelet Volume 10.5 FL Neutrophils (%) (Auto) 76.6 % Lymphocytes (%) (Auto) 15.7 % Monocytes (%) (Auto) 7.3 % Eosinophils (%) (Auto) 0.2 % Basophils (%) (Auto) 0.2 % Neutrophils # (Auto) 6.7 TH/MM3 Lymphocytes # (Auto) 1.4 TH/MM3 Monocytes # (Auto) 0.6 TH/MM3 Eosinophils # (Auto) 0.0 TH/MM3 Basophils # (Auto) 0.0 TH/MM3 CBC Comment DIFF FINAL Differential Comment Urine Color YELLOW Urine Turbidity HAZY Urine pH 5.5 Urine Specific [place] 1.027 Urine Protein TRACE mg/dL Urine Glucose (UA) NEG mg/dL Urine Ketones 40 mg/dL Urine Occult Blood NEG Urine Nitrite NEG Urine Bilirubin NEG Urine Urobilinogen 2.0 MG/DL Urine Leukocyte Esterase MOD Urine RBC LESS THAN 1 /hpf Urine WBC 19 /hpf Urine Squamous Epithelial Cells 7 /hpf Urine Mucus MANY /lpf Microscopic Urinalysis Comment CULTURE INDICATED Blood Urea Nitrogen 12 MG/DL Creatinine 0.71 MG/DL Random Glucose 80 MG/DL Calcium Level 8.7 MG/DL Sodium Level 138 MEQ/L Potassium Level 3.4 MEQ/L Chloride Level 105 MEQ/L Carbon Dioxide Level 25.6 MEQ/L Anion Gap 7 MEQ/L Estimat Glomerular Filtration Rate 101 ML/MIN Human Chorionic Gonadotropin, Quant 227 MIU/ML MDM Medical Decision Making Medical Screen Exam Complete: Yes Emergency Medical Condition: Yes Differential Diagnosis Differential diagnosis of flank pain includes but is not limited to kidney stone , pyelonephritis, musculoskeletal pain, PE Narrative Course Patient presents with right flank pain. I initiated an evaluation for kidney stone versus pyelonephritis including a urinalysis, CT, routine blood work, IV fluids and IV analgesia. However, her bedside test is faintly positive. Therefore, the CT scan has been discontinued as has the order for Toradol. Instead, she will have an ultrasound of both her kidney and her [employer] organs to rule out pyelonephritis, hydronephrosis or ectopic . Quantitative hCG has been ordered. CBC & BMP Diagram 07/04/17 13:20 Calcium Level 8.7 quant [id number]. I don't suspect that we will see anything on her pelvic US. UA>>mod LE, 19 WBCs, many mucous---this is an equivocal UA. It is probably contaminated. Last Impressions Renal Ultrasound 07/04/17 1334 Signed Impressions: Service Date/Time: Tuesday, July 04, 2017 14:05 - CONCLUSION: Possible small bilateral renal calculi. Minimal prominence of the proximal renal collecting systems bilaterally without vy hydronephrosis. Cirilo Bobo MD Pelvis Ultrasound 07/04/17 1334 Signed Impressions: Service Date/Time: Tuesday, July 04, 2017 14:13 - CONCLUSION: 1. 1.2 cm oval area of hypoechogenicity within the uterus could represent a deformed gestational sac but does not have the typical appearance of a normal gestational sac. No pole or yolk sac identified. 2. 1.4 cm complex ovarian cysts on the left may represent corpus luteum cyst. 3. Trace free fluid in the pelvis. Cirilo Bobo MD The patient will be instructed to return here in 2 days for repeat quantitative hCG. I have given her Rocephin for possible UTI. I really believe that her urine is contaminated. I will not discharge her on any antibiotics. Diagnosis Primary Impression: Flank pain Additional Impression: Early stage of Patient Instructions: Flank Pain (ED), General Instructions, Planning for (GEN) Additional Instructions: Return in 2 days for repeat quantitative hCG Disposition: 01 DISCHARGE HOME Condition: Stable Nickie Muñoz MD Jul 04, 2017 13:40
[2017-07-04 13:43] LABS: AUTOMATED NEUTROPHIL # 6.7 TH/MM3 (1.8-7.7); BASOPHIL % 0.2 % (0.0-2.0); EOSINOPHIL % 0.2 % (0.0-4.0); HEMATOCRIT 41.5 % (35.0-46.0); HEMOGLOBIN 14.5 GM/DL (11.6-15.3); LYMPH % 15.7 % (9.0-44.0); LYMPHOCYTE # 1.4 TH/MM3 (1.0-4.8); MEAN CELL VOLUME 87.4 FL (80.0-100.0); MEAN CORPUSCULAR HEMOGLOBIN 30.4 PG (27.0-34.0); MEAN CORPUSCULAR HGB CONC 34.8 % (32.0-36.0); MEAN PLATELET VOLUME 10.5 FL (7.0-11.0); MONO % 7.3 % (0.0-8.0); MONOCYTE # 0.6 TH/MM3 (0-0.9); NEUT % 76.6 % (16.0-70.0); PLATELET COUNT 199 TH/MM3 (150-450); RED BLOOD COUNT 4.75 MIL/MM3 (4.00-5.30); RED CELL DISTRIBUTION WIDTH 13.1 % (11.6-17.2); WHITE BLOOD COUNT 8.7 TH/MM3 (4.0-11.0)
[2017-07-04 13:46] LABS: BILIRUBIN, URINE NEG (NEG); BLOOD, URINE NEG (NEG); GLUCOSE,URINE NEG (NEG); KETONE, URINE 40 mg/dL (NEG); MUCUS URINE MANY /lpf (OCC); NITRITE,URINE NEG (NEG); PH, URINE 5.5 (5.0-8.5); SQUAMOUS EPITHELIAL CELL URINE 7 /hpf (0-5); URINE COLOR YELLOW (YELLW/STRAW); URINE LEUKOCYTE ESTERASE MOD (NEG)
[2017-07-04] MEDS ORDERED: cefTRIAXone INJ 1,000 MG in SODIUM CHLORIDE 0.9% INJ 100 ML IV ONE (14:00)
[2017-07-04 14:02] LABS: BICARBONATE 25.6 MEQ/L (21.0-32.0); CALCIUM 8.7 MG/DL (8.5-10.1); CREATININE 0.71 MG/DL (0.50-1.00)
--- NOTE | 2017-07-04 15:10 | RADRPT ---
EXAM DATE/TIME: 07/04/2017 14:05 [facility] COMPARISON: CT ABDOMEN & PELVIS W/O CONTRAST, January 04, 2012, 1:17. INDICATIONS : Flank pain. MEDICAL HISTORY : Asthma. Flank pain. SURGICAL HISTORY : Right arm surgery. ENCOUNTER: Initial ACUITY: 3 months PAIN SCORE: 8/10 LOCATION: Bilateral flank MEASUREMENTS: RIGHT KIDNEY: 11.3 x 5.0 x 4.2 cm LEFT KIDNEY: 11.5 x 5.8 x 6.5 cm FINDINGS: RIGHT KIDNEY: Mild prominence of the proximal renal collecting system. Several small echogenic foci in the renal hi lum and may represent small calculi. LEFT KIDNEY: Mild prominence of the proximal renal collecting system. Several small echogenic foci in the renal hi lum that may represent small calculi. BLADDER: Within normal limits given the degree of distension. CONCLUSION: Possible small bilateral renal calculi. Minimal prominence of the proximal renal collecting systems b ilaterally without vy hydronephrosis. Cirilo Bobo MD on July 04, 2017 at 15:06 Board Certified Radiologist. This report was verified electronically.
--- NOTE | 2017-07-04 15:14 | RADRPT ---
EXAM DATE/TIME: 07/04/2017 14:13 [facility] COMPARISON: No previous studies available for comparison. INDICATIONS : Flank pain. LAB(S): Beta-[facility]C MEDICAL HISTORY : . Ovarian cysts. Asthma. Flank pain. SURGICAL HISTORY : Right arm surgery. ENCOUNTER: Subsequent ACUITY: 2 months PAIN SCORE: 6/10 LOCATION: Bilateral pelvis MEASUREMENTS: UTERUS: 7.6 x 5.2 x 4.2 cm ENDOMETRIAL STRIPE: 15 mm RIGHT OVARY: 3.4 x 1.9 x 1.9 cm LEFT OVARY: 4.2 x 3.3 x 2.5 cm FREE FLUID: Yes Cul-de-sac CROWN RUMP LENGTH: NOT VISUALIZED = WKS DAYS FHR: N/A BPM FINDINGS: UTERUS: Endometrial stripe is somewhat thickened and mildly heterogeneous measuring 15 mm. There is an elonga romelia ovoid area of relative hypodensity within the uterine fundus measuring 1.2 x 0.9 x 0.5 cm. Does n ot have the typical appearance of a normal gestational sac. No pole or yolk sac identified. RIGHT OVARY: Ovary contains no mass or significant cystic lesion. LEFT OVARY: 1.4 x 0.9 cm complex ovarian cyst. MISCELLANEOUS: Small amount of free fluid in the cul-de-sac. CONCLUSION: 1. 1.2 cm oval area of hypoechogenicity within the uterus could represent a deformed gestational sac but does not have the typical appearance of a normal gestational sac. No pole or yolk sac ident ified. 2. 1.4 cm complex ovarian cysts on the left may represent corpus luteum cyst. 3. Trace free fluid in the pelvis. Cirilo Bobo MD on July 04, 2017 at 15:08 Board Certified Radiologist. This report was verified electronically.
== END 2017-07-04 16:01 | disposition home or self-care (01) ==
LOC: NEPD 12:33
DX: O26.891 Other specified pregnancy related conditions, first trimester (principal); R10.9 Unspecified abdominal pain; Z3A.00 Weeks of gestation of pregnancy not specified
CPT/HCPCS: 76700; 76775; 76817; 80048; 81001; 84702; 84703; 85025; 87086; 96361; 96374; 96375; 99285; J0696; J1170; J1885; J2405; J7030

== ENCOUNTER 2017-07-06 07:40 | Emergency (ER) | payer MEDICAID ==
[~2017-07-06] VITALS: Ht 180.3 cm; Wt 59.0 kg
[~2017-07-06 07:40] MED LIST changes: -DIFL150T PO; -IBUP-232 PO; -MACR100C2 PO
[2017-07-06 07:42] VITALS: BP 135/85; PULSE 114; RESP 14; TEMP 98.4; O2SAT 99
[2017-07-06 08:24] LABS: AUTOMATED NEUTROPHIL # 2.5 TH/MM3 (1.8-7.7); BASOPHIL % 0.3 % (0.0-2.0); EOSINOPHIL % 1.1 % (0.0-4.0); HEMATOCRIT 39.9 % (35.0-46.0); HEMOGLOBIN 13.8 GM/DL (11.6-15.3); LYMPH % 29.2 % (9.0-44.0); LYMPHOCYTE # 1.3 TH/MM3 (1.0-4.8); MEAN CORPUSCULAR HEMOGLOBIN 30.5 PG (27.0-34.0); MEAN CORPUSCULAR HGB CONC 34.6 % (32.0-36.0); MEAN PLATELET VOLUME 10.1 FL (7.0-11.0); MONO % 11.3 % (0.0-8.0); MONOCYTE # 0.5 TH/MM3 (0-0.9); NEUT % 58.1 % (16.0-70.0); PLATELET COUNT 200 TH/MM3 (150-450); RED BLOOD COUNT 4.54 MIL/MM3 (4.00-5.30); RED CELL DISTRIBUTION WIDTH 13.3 % (11.6-17.2); WHITE BLOOD COUNT 4.3 TH/MM3 (4.0-11.0)
[2017-07-06 08:41] LABS: BACTERIA, URINE MOD /hpf; BILIRUBIN, URINE NEG (NEG); BLOOD, URINE NEG (NEG); GLUCOSE,URINE NEG (NEG); KETONE, URINE NEG (NEG); MUCUS URINE FEW /lpf (OCC); NITRITE,URINE NEG (NEG); TRANSITIONAL EPI CELLS, URINE 1 /hpf; URINE COLOR YELLOW (YELLW/STRAW); URINE LEUKOCYTE ESTERASE LARGE (NEG)
[2017-07-06 08:43] LABS: SQUAMOUS EPITHELIAL CELL URINE 73 /hpf (0-5)
--- NOTE | 2017-07-06 08:45 | PD ---
HPI Chief Complaint: Related Problem Time Seen by Provider: 08:02 Travel History International Travel<30 days: No Contact w/Intl Traveler<30days: No Traveled to known affect area: No History of Present Illness HPI 46-year-old female who was seen here on the for right sided flank pain, presents today with complaints of having a low hCG and told she was on last visit. 2 days ago patient was being evaluated for her flank pain and was found to be . The patient had an ultrasound that showed what appeared to be an abnormal pole in the uterus. There is trace free fluid in the pelvis. There is no obvious ectopic. The patient also had renal ultrasounds showed no evidence of hydronephrosis with renal calculi in both kidneys. The patient reports continued discomfort. She denies any fevers, chills. Her urinalysis 2 days ago showed white blood cells however no bacteria. She was not placed on antibiotics. There are no other complaints time my examination. PFSH Past Medical History Asthma: Yes Blood Disorders: No Cancer: No Cardiovascular Problems: No COPD: No Diminished Hearing: No Endocrine: No Genitourinary: No Immune Disorder: No Musculoskeletal: No Neurologic: Yes (PT C/O NUMBNESS/TINGLING OF EXTS LAST 3 DAYS) Psychiatric: No Reproductive: Yes (OVARIAN CYSTS) Respiratory: Yes Immunizations Current: Yes Sleep Apnea: No ?: : 1 Para: 1 Past Surgical History Other Surgery: Yes (RIGHT ARM SURGERY A CHILD) Social History Alcohol Use: Yes (OCCASIONALLY) Tobacco Use: No Substance Use: No Allergies-Medications (Allergen,Severity, Reaction): Coded Allergies: peanut (Unverified Allergy, Severe, Anaphylaxis, 07/06/17) grass pollen (Unverified Allergy, Intermediate, EYES WATERING, SNEEZING, 07/06/17) Reported Meds & Prescriptions Reported Meds & Active Scripts Active Macrobid (Nitrofurantoin Monohydrate Macrocrystals) 100 Mg Capsule 100 Mg PO BID 7 Days Reported Ventolin Hfa 18 GM Inh (Albuterol Sulfate) 90 Mcg/Act Aer 2 Puff INH Q4-6H PRN Albuterol Neb (Albuterol Sulfate) Unknown Strength Neb Unknown Dose NEB Q6HR NEB PRN Review of Systems Except as stated in HPI: all other systems reviewed are Neg HENT: No: Headaches, Neck Pain Cardiovascular: No: Chest Pain or Discomfort, Palpitations Respiratory: No: Cough, Shortness of Breath Gastrointestinal: No: Nausea, Vomiting, Abdominal Pain Genitourinary: Positive: Flank Pain (right), No: Dysuria, Discharge, Vaginal Bleeding Musculoskeletal: Positive: Pain (right flank), No: Weakness Neurologic: No: Weakness, Dizziness, Headache Physical Exam Narrative GENERAL: Well-nourished, well-developed patient, in no acute respiratory distress. SKIN: Focused skin assessment warm/dry. HEAD: Normocephalic/atraumatic. EYES: No scleral icterus. No injection or drainage. NECK: Supple, trachea midline. No JVD or lymphadenopathy. CARDIOVASCULAR: Regular rate and rhythm without murmurs, gallops, or rubs. RESPIRATORY: Breath sounds equal bilaterally. No accessory muscle use. GASTROINTESTINAL: Abdomen soft, non-tender, nondistended. BACK: No CVA tenderness. No rash. Pain is subjective in her flank. MUSCULOSKELETAL: No cyanosis, or edema. NEUROLOGICAL: Awake and alert. Cranial nerves II through XII intact. Motor grossly within normal limits. Five out of 5 muscle strength in all muscle groups. Normal speech. Data Data Last Documented VS Vital Signs Date Time Temp Pulse Resp B/P (MAP) Pulse Ox O2 Delivery O2 Flow Rate FiO2 07/06/17 08:44 (102) 07/06/17 07:42 98.4 114 14 99 Orders Orders Complete Blood Count With Diff (07/06/17 08:04) Urinalysis - C+S If Indicated (07/06/17 08:04) Beta Hcg (Quant/Titer) (07/06/17 08:04) Iv Access Insert/Monitor (07/06/17 08:04) Ecg Monitoring (07/06/17 08:04) Oximetry (07/06/17 08:04) Urine Culture (07/06/17 08:12) Comprehensive Metabolic Panel (07/06/17 08:16) Ceftriaxone Inj (Rocephin Inj) (07/06/17 10:00) Labs Laboratory Tests Test 07/06/17 08:12 07/06/17 08:16 Urine Color YELLOW Urine Turbidity HAZY Urine pH 6.0 Urine Specific [place] 1.020 Urine Protein TRACE mg/dL Urine Glucose (UA) NEG mg/dL Urine Ketones NEG mg/dL Urine Occult Blood NEG Urine Nitrite NEG Urine Bilirubin NEG Urine Urobilinogen LESS THAN 2.0 MG/DL Urine Leukocyte Esterase LARGE Urine RBC 28 /hpf Urine WBC 14 /hpf Urine Squamous Epithelial Cells 73 /hpf Urine Transitional Epithelial Cells 1 /hpf Urine Bacteria MOD /hpf Urine Mucus FEW /lpf Microscopic Urinalysis Comment CULTURE INDICATED White Blood Count 4.3 TH/MM3 Red Blood Count 4.54 MIL/MM3 Hemoglobin 13.8 GM/DL Hematocrit 39.9 % Mean Corpuscular Volume 88.0 FL Mean Corpuscular Hemoglobin 30.5 PG Mean Corpuscular Hemoglobin Concent 34.6 % Red Cell Distribution Width 13.3 % Platelet Count 200 TH/MM3 Mean Platelet Volume 10.1 FL Neutrophils (%) (Auto) 58.1 % Lymphocytes (%) (Auto) 29.2 % Monocytes (%) (Auto) 11.3 % Eosinophils (%) (Auto) 1.1 % Basophils (%) (Auto) 0.3 % Neutrophils # (Auto) 2.5 TH/MM3 Lymphocytes # (Auto) 1.3 TH/MM3 Monocytes # (Auto) 0.5 TH/MM3 Eosinophils # (Auto) 0.0 TH/MM3 Basophils # (Auto) 0.0 TH/MM3 CBC Comment DIFF FINAL Differential Comment Blood Urea Nitrogen 13 MG/DL Creatinine 0.83 MG/DL Random Glucose 96 MG/DL Total Protein 7.0 GM/DL Albumin 3.6 GM/DL Calcium Level 8.6 MG/DL Alkaline Phosphatase 43 U/L Aspartate Amino Transf (AST/SGOT) 13 U/L Alanine Aminotransferase (ALT/SGPT) 15 U/L Total Bilirubin 0.5 MG/DL Sodium Level 140 MEQ/L Potassium Level 3.4 MEQ/L Chloride Level 108 MEQ/L Carbon Dioxide Level 22.3 MEQ/L Anion Gap 10 MEQ/L Estimat Glomerular Filtration Rate 84 ML/MIN Human Chorionic Gonadotropin, Quant 559 MIU/ML [facility] Medical Decision Making Medical Screen Exam Complete: Yes Emergency Medical Condition: Yes Differential Diagnosis Ectopic versus pyelonephritis versus threatened miscarriage versus incomplete AB Narrative Course 46-year-old female presents to days after being seen for right upper flank pain. Patient had a beta-hCG that was 274. Today's. She has 555. It has doubled. I've informed her that that is a positive sign. Patient has no abdominal pain. There is no vaginal discharge or bleeding. The patient is also noted to have a urinary tract infection given the fact that she has a flank pain, I've given her 1 g of Rocephin IVD. We will treat this as early pyelonephritis. She is afebrile. She'll be instructed to follow up with an OB doctor. She'll be given a prescription for Macrobid per she's also instructed to return if she does any abdominal pain. Vaginal bleeding, or any other reason the concerns her. Diagnosis Primary Impression: cystitis, questionable early pyelonephritis Additional Impression: early with appropriate increase in beta hCG hormone level Additional Instructions: Your hormone level doubled which is reassuring. This however could still be an abnormal . Recommendation is that you return if abdominal pain, fevers chills, vaginal bleeding, or any other reason the concerns you. Take vitamins. Take your antibiotics as prescribed. Follow up with an OB doctor. Med/Other Pt SpecificInfo: Prescription(s) given Scripts Nitrofurantoin Monohydrate Macrocrystals (Macrobid) 100 Mg Capsule 100 MG PO BID for Infection for 7 Days, #14 CAP 0 Refills Prov: Ricardo Martin MD 07/06/17 Disposition: DISCHARGE HOME Condition: Stable Ricardo Martin MD Jul 06, 2017 08:45
[2017-07-06 09:20] LABS: ALBUMIN 3.6 GM/DL (3.4-5.0); ALT (GPT) 15 U/L (10-53); AST (GOT) 13 U/L (15-37); BICARBONATE 22.3 MEQ/L (21.0-32.0); BLOOD UREA NITROGEN 13 MG/DL (7-18); CALCIUM 8.6 MG/DL (8.5-10.1); CHLORIDE 108 MEQ/L (98-107); CREATININE 0.83 MG/DL (0.50-1.00); GLOMERULAR FILTRATION RATE 84 ML/MIN (>89); GLUCOSE,RANDOM 96 MG/DL (74-106); SODIUM (NA) 140 MEQ/L (136-145)
[2017-07-06 09:22] LABS: ALKALINE PHOSPHATASE 43 U/L (45-117); TOTAL BILIRUBIN ADULT 0.5 MG/DL (0.2-1.0)
[2017-07-06] MEDS ORDERED: MACR100C2 PO (09:59)
[2017-07-06] MEDS ORDERED: cefTRIAXone INJ 1,000 MG in SODIUM CHLORIDE 0.9% INJ 100 ML IV ONE (10:00)
== END 2017-07-06 11:07 | disposition home or self-care (01) ==
LOC: NEPE 07:40
DX: O23.11 Infections of bladder in pregnancy, first trimester (principal); B96.89 Other specified bacterial agents as the cause of diseases classified elsewhere; Z3A.00 Weeks of gestation of pregnancy not specified
CPT/HCPCS: 80053; 81001; 84702; 85025; 87086; 96365; 99284; J0696

== ENCOUNTER 2017-10-06 21:48 | Emergency (ER) | payer MEDICAID, OTHER ==
[~2017-10-06] VITALS: Ht 180.3 cm; Wt 60.0 kg
[~2017-10-06 21:48] MED LIST changes: +MACR100C2 PO
[2017-10-06 22:44] VITALS: BP 119/75; PULSE 116; RESP 18; TEMP 100.8; O2SAT 97
[2017-10-07 02:09] VITALS: BP 120/76; PULSE 95; RESP 16; TEMP 98.6; O2SAT 100
[2017-10-07] MEDS ORDERED: KETOROLAC TROMETHAMINE 30 MG/ML (IVP) VIAL IV PUSH ONE (03:30)
[2017-10-07] MEDS ORDERED: SODIUM CHLORIDE 0.9% FLUSH 10 ML FLUSH IVF PRN (03:30)
[2017-10-07] MEDS ORDERED: cefTRIAXone INJ 1,000 MG in SODIUM CHLORIDE 0.9% INJ 100 ML IV ONE (03:30)
[2017-10-07] MEDS ORDERED: SODIUM CHLOR 0.9% 1000 ML INJ 1,000 ML IV ONE (03:30)
[2017-10-07 03:43] VITALS: O2SAT 99
[2017-10-07 03:50] LABS: AUTOMATED NEUTROPHIL # 7.5 TH/MM3 (1.8-7.7); BASOPHIL % 0.2 % (0.0-2.0); EOSINOPHIL % 0.2 % (0.0-4.0); HEMATOCRIT 40.8 % (35.0-46.0); HEMOGLOBIN 14.3 GM/DL (11.6-15.3); LYMPH % 13.7 % (9.0-44.0); LYMPHOCYTE # 1.4 TH/MM3 (1.0-4.8); MEAN CELL VOLUME 86.3 FL (80.0-100.0); MEAN CORPUSCULAR HEMOGLOBIN 30.3 PG (27.0-34.0); MEAN CORPUSCULAR HGB CONC 35.1 % (32.0-36.0); MEAN PLATELET VOLUME 9.9 FL (7.0-11.0); MONOCYTE # 1.3 TH/MM3 (0-0.9); NEUT % 72.9 % (16.0-70.0); PLATELET COUNT 219 TH/MM3 (150-450); RED BLOOD COUNT 4.73 MIL/MM3 (4.00-5.30); RED CELL DISTRIBUTION WIDTH 12.6 % (11.6-17.2); WHITE BLOOD COUNT 10.3 TH/MM3 (4.0-11.0)
--- NOTE | 2017-10-07 04:03 | RADRPT ---
EXAM DATE/TIME: 10/07/2017 03:49 [facility] COMPARISON: CHEST SINGLE AP, November 14, 2016, 19:56. INDICATIONS : Fever. MEDICAL HISTORY : None. SURGICAL HISTORY : None. ENCOUNTER: Initial ACUITY: 1 day PAIN SCORE: 0/10 LOCATION: Bilateral chest FINDINGS: A single view of the chest demonstrates the lungs to be symmetrically aerated without evidence of mas s, infiltrate or effusion. The cardiomediastinal contours are unremarkable. Osseous structures are intact. CONCLUSION: No acute disease. Sandeep Curran MD on October 07, 2017 at 4:01 Board Certified Radiologist. This report was verified electronically.
[2017-10-07 04:08] LABS: BICARBONATE 27.9 MEQ/L (21.0-32.0); CALCIUM 8.8 MG/DL (8.5-10.1); CREATININE 0.74 MG/DL (0.50-1.00)
[2017-10-07] MEDS ORDERED: VENTAER INH (06:44)
[2017-10-07] MEDS ORDERED: ZITHTAB PO (06:44)
--- NOTE | 2017-10-07 06:45 | PD ---
HPI Chief Complaint: Abdominal Pain Time Seen by Provider: 03:28 Travel History International Travel<30 days: No Contact w/Intl Traveler<30days: No Traveled to known affect area: No History of Present Illness HPI 27-year-old female presents to the emergency department by private transportation the care of her mother. Patient has had cough cold fever chills laryngitis vomiting and myalgias and arthralgias for the past several days. Patient has history of asthma without exacerbation. Patient denies . No hematemesis coffee-ground emesis melena hematochezia. No dysuria frequency urgency or flank pain. Patient denies . Patient has had poor oral intake. PFSH Past Medical History Narrative Medical Asthma, ovarian cyst, right arm surgery; occasional alcohol use; nursing notes reviewed Asthma: Yes Blood Disorders: No Cancer: No Cardiovascular Problems: No COPD: No Diminished Hearing: No Endocrine: No Genitourinary: No Immune Disorder: No Musculoskeletal: No Neurologic: Yes (PT C/O NUMBNESS/TINGLING OF EXTS LAST 3 DAYS) Psychiatric: No Reproductive: Yes (OVARIAN CYSTS) Respiratory: Yes Immunizations Current: Yes Sleep Apnea: No Tetanus Vaccination: Unknown Influenza Vaccination: No ?: Not LMP: 09/08/2017 : 1 Para: 1 Past Surgical History Surgical History: No Previous Surgery Other Surgery: Yes (RIGHT ARM SURGERY A CHILD) Social History Alcohol Use: Yes (OCCASIONALLY) Tobacco Use: No Substance Use: No Allergies-Medications (Allergen,Severity, Reaction): Coded Allergies: peanut (Unverified Allergy, Severe, Anaphylaxis, 10/06/17) grass pollen (Unverified Allergy, Intermediate, EYES WATERING, SNEEZING, ) Reported Meds & Prescriptions Reported Meds & Active Scripts Active Ventolin Hfa 18 GM Inh (Albuterol Sulfate) 90 Mcg/Act Aer 2 Puff INH Q4-6H PRN Zithromax Z-Adryan (Azithromycin) 250 Mg Dspk 250 Mg PO DIRECTED 500 MG (2 tabs) day 1, then 1 tab days 2-5. Macrobid (Nitrofurantoin Monohydrate Macrocrystals) 100 Mg Capsule 100 Mg PO BID 7 Days Reported Ventolin Hfa 18 GM Inh (Albuterol Sulfate) 90 Mcg/Act Aer 2 Puff INH Q4-6H PRN Albuterol Neb (Albuterol Sulfate) Unknown Strength Neb Unknown Dose NEB Q6HR NEB PRN Review of Systems Except as stated in HPI: all other systems reviewed are Neg Physical Exam Narrative GENERAL: Well-developed well-nourished female no acute distress no respiratory distress SKIN: Warm and dry. HEAD: Normocephalic. EYES: No scleral icterus. No injection or drainage. NECK: Supple, trachea midline. No JVD or lymphadenopathy. CARDIOVASCULAR: Regular rate and rhythm without murmurs, gallops, or rubs. RESPIRATORY: Breath sounds equal bilaterally. No accessory muscle use. GASTROINTESTINAL: Abdomen soft, non-tender, nondistended. MUSCULOSKELETAL: No cyanosis, or edema. BACK: Nontender without obvious deformity. No CVA tenderness. Data Data Last Documented VS Vital Signs Date Time Temp Pulse Resp B/P (MAP) Pulse Ox O2 Delivery O2 Flow Rate FiO2 10/07/17 07:05 10/07/17 07:05 78 16 99 Room Air Orders Orders Ed Urine Pregnancytest Poc (10/07/17 03:21) Complete Blood Count With Diff (10/07/17 03:28) Basic Metabolic Panel (Bmp) (10/07/17 03:28) Group A Rapid Strep Screen (10/07/17 03:28) Influenzae A/B Antigen (10/07/17 03:28) Chest, Single Ap (10/07/17 03:28) Iv Access Insert/Monitor (10/07/17 03:28) Oximetry (10/07/17 03:28) Sodium Chloride 0.9% Flush (Ns Flush) (10/07/17 03:30) Sodium Chlor 0.9% 1000 Ml Inj (Ns 1000 M (10/07/17 03:30) Ceftriaxone Inj (Rocephin Inj) (10/07/17 03:30) Ketorolac Inj (Toradol Inj) (10/07/17 03:30) Strep Culture (Group A) (10/07/17 03:38) Ed Discharge Order (10/07/17 06:39) Labs Laboratory Tests Test 10/07/17 03:38 White Blood Count 10.3 TH/MM3 Red Blood Count 4.73 MIL/MM3 Hemoglobin 14.3 GM/DL Hematocrit 40.8 % Mean Corpuscular Volume 86.3 FL Mean Corpuscular Hemoglobin 30.3 PG Mean Corpuscular Hemoglobin Concent 35.1 % Red Cell Distribution Width 12.6 % Platelet Count 219 TH/MM3 Mean Platelet Volume 9.9 FL Neutrophils (%) (Auto) 72.9 % Lymphocytes (%) (Auto) 13.7 % Monocytes (%) (Auto) 13.0 % Eosinophils (%) (Auto) 0.2 % Basophils (%) (Auto) 0.2 % Neutrophils # (Auto) 7.5 TH/MM3 Lymphocytes # (Auto) 1.4 TH/MM3 Monocytes # (Auto) 1.3 TH/MM3 Eosinophils # (Auto) 0.0 TH/MM3 Basophils # (Auto) 0.0 TH/MM3 CBC Comment DIFF FINAL Differential Comment Blood Urea Nitrogen 15 MG/DL Creatinine 0.74 MG/DL Random Glucose 88 MG/DL Calcium Level 8.8 MG/DL Sodium Level 139 MEQ/L Potassium Level 3.4 MEQ/L Chloride Level 102 MEQ/L Carbon Dioxide Level 27.9 MEQ/L Anion Gap 9 MEQ/L Estimat Glomerular Filtration Rate 96 ML/MIN MDM Medical Decision Making Medical Screen Exam Complete: Yes Emergency Medical Condition: Yes Medical Record Reviewed: Yes Interpretation(s) poc hcg: negative Last Impressions Chest X-Ray 10/07/17 0328 Signed Impressions: Service Date/Time: September 03:49 - CONCLUSION: No acute disease. Sandeep Curran MD CBC & BMP Diagram 10/07/17 03:38 Calcium Level 8.8 Vital Signs Date Time Temp Pulse Resp B/P (MAP) Pulse Ox O2 Delivery O2 Flow Rate FiO2 10/07/17 07:05 10/07/17 07:05 78 16 106/55 (72) 99 Room Air Differential Diagnosis Viral syndrome, influenza, pharyngitis, bronchitis, pneumonia, UTI, sepsis Narrative Course IV access obtained specimens collected and sent for resulting [id number] hCG negative Chest x-ray no lobar infiltrate Rapid strep and flu test negative Patient is stable for outpatient management and follow-up with primary care provider patient given refill of rescue albuterol inhaler and Rx for azithromycin Diagnosis Primary Impression: Bronchitis Additional Impression: Medication refill Referrals: Primary Care Physician 2 days Patient Instructions: General Instructions Departure Forms: Tests/Procedures, Work Release Special Instructions: no work x 2 days Additional Instructions: Increase fluid hydration Monitor temperature every 4 hours with thermometry take as needed acetaminophen/ Tylenol every 4 hours for fever 100.4F or greater and/or ibuprofen/Advil/ Motrin 600 mg as often as every 6 hours as needed for fever 100.4F or greater Because of antibiotic as prescribed Return the emergency department for any concerns or change in condition No work 2 days Med/Other Pt SpecificInfo: Prescription(s) given Scripts Albuterol 18 GM Inh (Ventolin Hfa 18 GM Inh) 90 Mcg/Act Aer 2 PUFF INH Q4-6H Y for SHORTNESS OF BREATH, #1 INHALER 0 Refills Prov: Desire Hinton MD 10/07/17 Azithromycin (Zithromax Z-Adryan) 250 Mg Dspk 250 MG PO DIRECTED for Infection, #1 DSPK 0 Refills 500 MG (2 tabs) day 1, then 1 tab days 2-5. Prov: Desire Hinton MD 10/07/17 Disposition: 01 DISCHARGE HOME Condition: Stable Desire Hinton MD Oct 07, 2017 06:45
[2017-10-07 07:05] VITALS: BP 106/55; PULSE 78; RESP 16; O2SAT 99
== END 2017-10-07 07:08 | disposition home or self-care (01) ==
LOC: NEPC 21:48
DX: J40 Bronchitis, not specified as acute or chronic (principal); Z76.0 Encounter for issue of repeat prescription
CPT/HCPCS: 71045; 80048; 84703; 85025; 87081; 87804; 87880; 96365; 96375; 99284; J0696; J1885; J7030